=== PATIENT | female | born 2000 | race Hispanic/Latino ===

== ENCOUNTER 2020-06-27 17:36 | Emergency (ER) | payer OTHER ==
[2020-06-27] MEDS ORDERED: ONDANSETRON HCL INJ 2MG/ML 2ML 2 MG/ML VIAL IV STA (17:46)
--- NOTE | 2020-06-27 17:51 | Emergency Department Note ---
History of Present Illnes History of Present Illness Chief Complaint: Abdominal Complaints History of Present Illness This is a 19 year old female Chief Complaint Comment Patient in from home with complaints of lower abdominal pain that started today. Patient states that the pain is 10/10. Patient states that menstrual cycles are irregular and that her LMP was 3 months ago. Patient does report being sexually active but denies . Historian: Patient Arrival Mode: Car Ecommerce Marketing Specialist Required: No Onset (how long ago): day(s) (1) Location: lower abdominal Quality: sharp Radiation: Reports non-radiation Severity: moderate Onset quality: gradual Duration (how long): day(s) (1) Timing of current episode: constant Progression: worsening Chronicity: new Context: Denies recent illness Relieving factors: none Exacerbating factors: none Associated symptoms: Reports denies other symptoms Treatments prior to arrival: none Past Medical/Family History Physician Review I have reviewed the patient's past medical and family history. Any updates have been documented here. Past Medical History Recent Fever: No Clinical Suspicion of Infectio: No New/Unexplained Change in Ment: No Review of Systems Review of Systems Constitutional: Reports no symptoms EENTM: Reports no symptoms Cardiovascular: Reports no symptoms Respiratory: Reports no symptoms Gastrointestinal: Reports no symptoms, Reports as per HPI, Reports abdominal pain (lowe, bilateral), Reports nausea; Denies constipation, Denies diarrhea, Denies vomiting Genitourinary: Reports no symptoms; Denies discharge, Denies dysuria, Denies frequency, Denies hematuria Musculoskeletal: Reports no symptoms Integumentary: Reports no symptoms Neurological: Reports no symptoms Psychological: Reports no symptoms Endocrine: Reports no symptoms Hematological/Lymphatic: Reports no symptoms Physical Exam Related Data Allergies: Coded Allergies: No Known Allergies (Unverified , 06/27/20) Triage Vital Signs Vital Signs Date Time Temp Pulse Resp B/P (MAP) Pulse Ox O2 Delivery O2 Flow Rate FiO2 06/27/20 17:41 99.1 117 18 139/73 100 Vital signs reviewed: Yes Physical Exam CONSTITUTIONAL Constitutional: Present well-developed, Present well-nourished HENT HENT: Present normocephalic, Present atraumatic, Present oropharynx clear/moist, Present nose normal HENT L/R: Present left ext ear normal, Present right ext ear normal EYES Eyes: Reports PERRL, Reports conjunctivae normal NECK Neck: Present ROM normal PULMONARY Pulmonary: Present effort normal, Present breath sounds normal CARDIOVASCULAR Cardiovascular: Present regular rhythm, Present heart sounds normal, Present capillary refill normal, Present normal rate GASTROINTESTINAL Abdominal: Present soft, Present bowel sounds normal, Present tender (Bilateral lower abdomen); Absent nontender GENITOURINARY Genitourinary: Present exam deferred SKIN Skin: Present warm, Present dry MUSCULOSKELETAL Musculoskeletal: Present ROM normal NEUROLOGICAL Neurological: Present alert, Present oriented x 3, Present no gross motor or sensory deficits PSYCHOLOGICAL Psychological: Present mood/affect normal, Present judgement normal Assessment & Plan Medical Decision Making MDM 19 y.o F presents for abdominal pain. Initial differential includes appendicitis versus STD versus urinary tract infection. Workup shows urinary tract infection. She'll be prescribed Keflex will follow up with primary care provider for further concerns. Patient discharged. Assessment & Plan Final Impression: (1) UTI (urinary tract infection) Depart Disposition: HOME, SELF-CARE Last Vital Signs Date Time Temp Pulse Resp B/P (MAP) Pulse Ox O2 Delivery O2 Flow Rate FiO2 06/27/20 17:41 99.1 117 18 139/73 100 Home Meds Active Scripts Cephalexin Monohydrate (KEFLEX) 500 Mg Capsule, 500 MG PO Q6H, #40 TAB 0 Refills Prov:SANDHIR, AMBICA, DO 06/27/20 Dicyclomine Hcl (BENTYL) 10 Mg/1 Ml Ampul, 10 MG PO QID, #30 VIAL Prov:CATARINOR AMBICA, DO 06/27/20 Ondansetron Hcl* (ZOFRAN*) 4 Mg Tablet, 4 MG SL Q6H PRN for NAUSEA, #14 MG 0 Refills Prov:AMADOR TRACY, DO 06/27/20 EDILBERTO GOLD MD Jun 27, 2020 17:51
[2020-06-27] MEDS ORDERED: SODIUM CHLORIDE 0.9% INJ 100 ML BAG IV ONE (17:59)
[2020-06-27] MEDS ORDERED: IOPAMIDOL 370 MG/ML 50ML INFUS..BTL INJ ONE (17:59)
[2020-06-27] MEDS ORDERED: FENTANYL CITRATE/PF 100MCG/2 ML INJ IV PRN (18:00)
--- OUTSIDE RECORDS SUMMARY | 2020-06-27 18:00 | XMS REPORT | Summary of Care ---
Author Author [facility] Outpatient Imaging - [facility] Organization [facility] Outpatient Imaging - [facility] Address Unknown Phone Unavailable Encounter HQ Toño(FIN) [id number] Date(s): 08/21/18 - 08/21/18 [facility] Outpatient Imaging [address], [address] [place], [place] [address] [phone] Encounter Diagnosis Type 2 diabetes mellitus without complications (Final) - 08/27/18 Unspecified abdominal pain (Final) - Hematuria, unspecified (Final) - Fever, unspecified (Final) - Other specified disorders of kidney and ureter (Final) - Cyst of kidney, acquired (Final) - Discharge Disposition: Home or Self Care Attending Physician: Jake Bond MD Referring Physician: Jake Bond MD Vital Signs No data available for this section Problem List Condition Effective Dates Status Health Status Informan t Diabetes Resolved mellitus(Confirmed) Allergies, Adverse Reactions, Alerts Substance Reaction Severity Status Food Shellfish Active Medications No data available for this section Results No data available for this section Immunizations No data available for this section Procedures No data available for this section Social History Social History Type Response Smoking Status Never smoker; Exposure to T obacco Smoke None; Cigarette Smoking Last 365 Days No; Reg Smoking Cessation Counseli ng No entered on: 04/17/16 Assessment and Plan No data available for this section
--- OUTSIDE RECORDS SUMMARY | 2020-06-27 18:00 | XMS REPORT ---
Author Author AKASH Miller Organization Unknown Address Unknown Phone Care Team Providers Care Electronic News Gathering Editor Name Role Phone Gloria Miller PP Reason for Referral No Reason for Referral was given. History of Present Illness No HPI available. Problems * Normal Routine History And Physical Adolescent (12 - 17) (V20.2); ( Active) * No Active Problems (Active) Medication * Augmentin 400-57 MG/5ML SUSR (Active) Allergies and Adverse Reactions * No Known Drug Allergies (Active) Past Medical History * History of Pharyngitis (462); (Resolved) Family History * Family history of Hypertension (V17.49); (Active) * Family history of Type 2 Diabetes Mellitus (Active) Social History * Never A Smoker (Active) * Never Drank Alcohol (Active) Advance Directives * No Advance Directives available. Encounters * AUDIT 01/18/2014
--- OUTSIDE RECORDS SUMMARY | 2020-06-27 18:00 | XMS REPORT | Summary of Care ---
Author Author [facility] Organization [facility] Address Unknown Phone Unavailable Encounter SAMARA Lundberg(RICARDA) [id number] Date(s): 04/17/16 - 04/19/16 [facility] [address] [employer] provided by [employer] [place] [address]- Discharge Disposition: Home Attending Physician: Will Shin MD Admitting Physician: Will Shin MD Vital Signs 1 2 3 Most recent to oldest [Reference Range]: 151.3 cm (04/19/16 11:46 AM) Height 98 DegF (04/19/16 11:00 AM) 98.1 DegF (04/19/16 8:00 AM) 97.6 DegF (04/19/16 4:04 AM) Temperature Oral [96.8-99.7 DegF] 115/76 mmHg (04/19/16 11:00 AM) 111/74 mmHg (04/19/16 8:00 AM) 109/68 mmHg (04/19/16 4:04 AM) Blood Pressure [90-138/45-84 mmHg] 19 BRMIN (04/19/16 11:00 AM) 18 BRMIN (04/19/16 8:00 AM) 20 BRMIN (04/19/16 4:04 AM) Respiratory Rate [14-20 BRMIN] 75 bpm (04/19/16 11:00 AM) 71 bpm (04/19/16 8:00 AM) 76 bpm (04/19/16 4:04 AM) Peripheral Pulse Rate [55-90 bpm] 77.8 kg (04/19/16 11:46 AM) 77.8 kg (04/17/16 2:50 PM) 78.5 kg (04/17/16 10:41 AM) Weight 33.99 m2 (04/19/16 11:46 AM) Body Mass Index Problem List Condition Effective Dates Status Health Status Informan t Diabetes Resolved mellitus(Confirmed) Allergies, Adverse Reactions, Alerts Substance Reaction Severity Status Food Shellfish Active Medications Dextrose 50% Syringe 25 gm, 50 mL, Route: IVP, Drug Form: INJ, Dosing Weight 78.5, kg, PRN, PRN Blood Glucose Results, Start date: 04/17/16 14:36:00 CDT, Duration: 30 day, Stop date: 05/17/16 14:35:00 CDT Start Date: 04/17/16 Stop Date: 04/19/16 Status: Discontinued insulin aspart 11 unit, 0.11 mL, Route: SUB-Q, Drug form: SOLN, TID-Before Meals, Dosing Weight 78.5, kg, Start date: 04/17/16 16:30:00 CDT, Duration: 30 day, Stop date: 05/17 11:30:00 CDT Notes: Roll in palms of hands gently; Do not shake vigorously. (Same as: Lorna Joseph)"single patient use only"WASTE: F/P - Black; E - Municipal Trash Bin Stable f or 28 days at room temperature.Expires in days from Date Start Date: 04/17/16 Stop Date: 04/19/16 Status: Discontinued insulin aspart 11 unit, 0.11 mL, Route: SUB-Q, Drug form: SOLN, Before Lunch, Dosing Weight 77. 8, kg, Start date: 04/19/16 11:30:00 CDT, Duration: 30 day, Stop date: 05/18/16 11:30:00 CDT Notes: Roll in palms of hands gently; Do not shake vigorously. (Same as: Lorna Joseph)"single patient use only"WASTE: F/P - Black; E - Municipal Trash Bin Stable f or 28 days at room temperature.Expires in days from Date Start Date: 04/19/16 Stop Date: 04/19/16 Status: Discontinued insulin aspart 12 unit, 0.12 mL, Route: SUB-Q, Drug form: SOLN, Before Breakfast, Dosing Weight 77.8, kg, Start date: 04/20/16 7:30:00 CDT, Duration: 30 day, Stop date: 7:30:00 CDT Notes: Roll in palms of hands gently; Do not shake vigorously. (Same as: NovoCARLOS Joseph)"single patient use only"WASTE: F/P - Black; E - Municipal Trash Bin Stable f or 28 days at room temperature.Expires in days from Date Start Date: 04/20/16 Stop Date: 04/19/16 Status: Canceled insulin aspart 12 unit, 0.12 mL, Route: SUB-Q, Drug form: SOLN, Before Dinner, Dosing Weight 77 .8, kg, Start date: 04/19/16 16:30:00 CDT, Duration: 30 day, Stop date: 05/18/16 16:30:00 CDT Notes: Roll in palms of hands gently; Do not shake vigorously. (Same as: Lorna Joseph)"single patient use only"WASTE: F/P - Black; E - Municipal Trash Bin Stable f or 28 days at room temperature.Expires in days from Date Start Date: 04/19/16 Stop Date: 04/19/16 Status: Discontinued insulin aspart Route: SUB-Q, Drug form: SOLN, TID-Meals, Dosing Weight 78.5, kg, PRN Blood Gluc ose Results, Start date: 04/17/16 14:36:00 CDT, Duration: 30 day, Stop date: 14:35:00 CDT Notes: Roll in palms of hands gently; Do not shake vigorously. (Same as: NovoCARLOS Joseph)"single patient use only"WASTE: F/P - Black; E - Municipal Trash Bin Stable f or 28 days at room temperature.Expires in days from Date Start Date: 04/17/16 Stop Date: 04/19/16 Status: Discontinued insulin aspart 1-8unit, SUB-Q, TID-Meals, PRN Blood Glucose Results, 0 Refill(s) Start Date: 04/18/16 Status: Ordered insulin aspart 11 unit, SUB-Q, TID-Before Meals, 0 Refill(s) Start Date: 04/18/16 Status: Ordered insulin glargine 34 unit, 0.34 mL, Route: SUB-Q, Drug form: INJ, Bedtime, Dosing Weight 78.5, kg, Start date: 04/17/16 21:00:00 CDT, Duration: 30 day, Stop date: 05/16/16 21:00: 00 CDT Notes: Same as Lantus Solostar PENDo not hold insulin without contacting prescri poornima"single patient use only"WASTE: F/P - Black; E - Municipal Trash Bin Stable for 28 days at room temperature.Expires in days from Date Start Date: 04/17/16 Stop Date: 04/17/16 Status: Canceled insulin glargine 34 unit, 0.34 mL, Route: SUB-Q, Drug form: INJ, ONCE, Dosing Weight 77.8, kg, St art date: 04/17/16 16:46:00 CDT, Stop date: 04/17/16 16:46:00 CDT Notes: Same as Lantus Solostar PENDo not hold insulin without contacting prescri poornima"single patient use only"WASTE: F/P - Black; E - Municipal Trash Bin Stable for 28 days at room temperature.Expires in days from Date Start Date: 04/17/16 Stop Date: 04/17/16 Status: Completed insulin glargine 34 unit, 0.34 mL, Route: SUB-Q, Drug form: INJ, Bedtime, Dosing Weight 78.5, kg, Start date: 04/18/16 21:00:00 CDT, Duration: 30 day, Stop date: 05/17/16 21:00: 00 CDT Notes: Same as Lantus Solostar PENDo not hold insulin without contacting prescri poornima"single patient use only"WASTE: F/P - Black; E - Municipal Trash Bin Stable for 28 days at room temperature.Expires in days from Date Start Date: 04/18/16 Stop Date: 04/19/16 Status: Discontinued insulin glargine 100 units/mL subcutaneous solution 34 unit, SUB-Q, Bedtime, 0 Refill(s) Start Date: 04/18/16 Status: Ordered normal saline 0.9% IV 1,000 mL 1,000 mL, Rate: 100 ml/hr, Infuse over: 10 hr, Route: IV, Dosing Weight 78.5 kg, Total Volume: 1,000, Priority: STAT, Start date: 04/17/16 10:59:00 CDT, Duratio n: 1 doses or times, Stop date: 04/17/16 20:58:00 CDT Start Date: 04/17/16 Stop Date: 04/17/16 Status: Completed pentafluoropropane-tetrafluoroethane topical 1 spray, Route: TOP, PRN, Drug form: SPRY, PRN Procedure, Start date: 04/17/16 1 4:40:00 CDT, Duration: 30 day, Stop date: 05/17/16 14:39:00 CDT Notes: (Same as: Pain Ease Medium Stream)WASTE: Aerosol - Return to Pharmacy Start Date: 04/17/16 Stop Date: 04/19/16 Status: Discontinued sucrose 0.2 mL, Route: PO, Drug Form: LIQ, Dosing Weight 78.5, kg, PRN, PRN Procedure, S tart date: 04/17/16 14:40:00 CDT, Duration: 3 doses or times, Stop date: Limited # of times Start Date: 04/17/16 Stop Date: 04/17/16 Status: Deleted Results ELECTROLYTES Most recent to 1 oldest [Reference Range]: Sodium Lvl [135-145 140 mEq/L mEq/L] (04/17/16 11:29 AM) Potassium Lvl 4.5 mEq/L [3.5-5.1 mEq/L] (04/17/16 11:29 AM) Chloride Lvl [95-109 101 mEq/L mEq/L] (04/17/16 11:29 AM) CO2 [24-32 mEq/L] 28 mEq/L (04/17/16 11:29 AM) AGAP [10.0-20.0 15.5 mEq/L mEq/L] (04/17/16 11:29 AM) CHEM PANEL Most recent to 1 oldest [Reference Range]: Creatinine Lvl 0.72 mg/dL [0.50-1.40 mg/dL] (04/17/16 11:29 AM) eGFR See Comment 1 *NA* (04/17/16 11:29 AM) BUN [7-22 mg/dL] 11 mg/dL (04/17/16 11:29 AM) Glucose Lvl [70-99 378 mg/dL mg/dL] *HI* (04/17/16 11:29 AM) Calcium Lvl 9.5 mg/dL [8.5-10.5 mg/dL] (04/17/16 11:29 AM) Amylase Lvl [25-115 48 unit/L unit/L] (04/17/16 11:29 AM) Lipase Lvl [73-393 127 unit/L unit/L] (04/17/16 11:29 AM) C-Peptide [0.48-5.05 2.84 ng/mL ng/mL] (04/17/16 4:47 PM) 1Result Comment: No height is recorded for this patient; estimated GFR cannot be calculated. SPECIAL CHEMISTRY Most recent to 1 oldest [Reference Range]: Hgb A1C [<=5.6 %] 11.4 % *HI* (04/17/16 11:29 AM) TOXICOLOGY Most recent to 1 oldest [Reference Range]: Insulin Ab [<0.4 <0.4 unit/mL 1 unit/mL] *NA* (04/17/16 11:29 AM) 1Result Comment: Test Performed at: [facility] [id number] [place] [id number] Alesha Kennedy MD, PhD ENDOCRINOLOGY Most recent to 1 oldest [Reference Range]: Insulin Lvl 18.4 uIU/mL *NA* (04/17/16 4:47 PM) URINE AND STOOL Most recent to 1 oldest [Reference Range]: UA Turbidity [Clear] Slight Cloudy (04/17/16 11:59 AM) UA Color [Yellow] Yellow *NA* (04/17/16 11:59 AM) UA pH [5.0-8.0] 5.5 (04/17/16 11:59 AM) UA Spec Grav 1.020 [<=1.030] (04/17/16 11:59 AM) UA Glucose [Negative >=1000 mg/dL mg/dL] *ABN* (04/17/16 11:59 AM) UA Blood [Negative] Trace *ABN* (04/17/16 11:59 AM) UA Ketones Negative [Negative] *NA* (04/17/16 11:59 AM) UA Protein Negative [Negative] (04/17/16 11:59 AM) UA Urobilinogen 0.2 EU/dL [0.1-1.0 EU/dL] (04/17/16 11:59 AM) UA Bili [Negative] Negative *NA* (04/17/16 11:59 AM) UA Leuk Est Small [Negative] *ABN* (04/17/16 11:59 AM) UA Nitrite Negative [Negative] (04/17/16 11:59 AM) UA WBC [None Seen 11-20 /HPF /HPF] *ABN* (04/17/16 11:59 AM) UA RBC [0-2 /HPF] 3-5 /HPF *ABN* (04/17/16 11:59 AM) UA Bacteria [None Few /HPF Seen /HPF] (04/17/16 11:59 AM) UA Sq Epi [Few /LPF] Moderate /LPF *ABN* (04/17/16 11:59 AM) Micro? Performed (04/17/16 11:59 AM) IMMUNOLOGY Most recent to 1 oldest [Reference Range]: Islet Cell Ab NEGATIVE 1 [NEGATIVE] *NA* (04/17/16 11:29 AM) 1Result Comment: This test was developed and its analytical performance characteristics have been determined by [facility]. It has not been cleared or approved by the U.S. Food and Drug Administration. The FDA has determined that such clearance or approval is not necessary. This assay has been validated pursuant to the CLIA regulations and is used for clinical purposes. Test Performed at: [facility] [address] [place] [id number] Alesha Kennedy MD, PhD Immunizations No data available for this section Procedures No data available for this section Social History Social History Type Response Smoking Status Never smoker; Exposure to T obacco Smoke None; Cigarette Smoking Last 365 Days No; Reg Smoking Cessation Counseli ng No Assessment and Plan Extracted from: Title: Team D Discharge Summary Author: Sarah Newby MD Date: 04/19/16 TEAM D DISCHARGE SUMMARY PATIENT S NAME: Akash Winston ADMISSION DATE: 04/17/2016 DISCHARGE DATE: 04/19/2016 SERVICE: D ATTENDING PHYSICIAN: Dr. Gretel Cartagena CONSULTS: Endocrinology PROCEDURES: None REASONS FOR ADMISSION: Hyperglycemia HISTORY OF PRESENT ILLNESS: Akash is a 15yo F presenting from clinic with hyperglycemia >300 and HbA1C of 11.7 and new onset diabetes. Mom reports 2 years ago first notice patient had acanthosis nigracans on her neck and went to PCP for evaluation. A1C at that time was 8.1. Was then referred to [facility] endocrine but mom was unable to get appointment for several months. 1 wk ago patient had epi sode of R. hand swelling on dorsum after "bug bite". Went to PCP and was started on PO bactrim x 10d for possible "staph infection". At this visit mom requested repeat A1C check as had never been reevaluated. At this time was 12.4. Patient then referred to [place] [facility] clinic and seen by Dr. Pereira. In clinic today, repeat A1C 11.7 and glucose in the 360s. Patient was then sent to [facility] ED. Prior to admission patient reports few months of polydipsia and polyuria. Has had 2-7lb weight loss since 04/04/16 clinic visit. PCP had been trying to regulate diet recently. Endorsed occasional headaches at school, in the heat, and when hasn't eaten. Recent low grade temp on 04/14, 100.7 Tm. Patient has completed 7/10d of PO bactrim, was discontinued in clinic today. PHYSICAL EXAM: GENERAL - awake, alert, well-developed, no acute distress, obese HEENT - NCAT, normal facies. PERRL. EOMI. hearing grossly intact. nares patent, no discharge. MMM, no oral lesions. neck supple, full ROM LUNGS - clear to auscultation bilaterally, no crackles or wheezes, symmetrical chest expansion, no increased work of breathing. CV - RRR, S1 and S2 present, no murmur, 2+ pulses bilaterally, cap refill < 2 sec. ABDOMEN - soft, non-tender, non-distended, normoactive bowel sounds EXTREMITIES - full ROM, no joint swelling or erythema, no edema. NEURO - grossly intact SKIN - no bruises, no lesions, no rashes. +mild swelling on R. dorsum near bug bite LABS: 04/17/2016 11:22 Glucose POC 344 * H (Ref. Range 70 - 99) 04/17/2016 11:29 Sodium Lvl 140 (Ref. Range 135 - 145) Potassium Lvl 4.5 (Ref. Range 3.5 - 5.1) Chloride Lvl 101 (Ref. Range 95 - 109) CO2 28 (Ref. Range 24 - 32) AGAP 15.5 (Ref. Range 10.0 - 20.0) Creatinine Lvl 0.72 (Ref. Range 0.50 - 1.40) eGFR See Comment * BUN 11 (Ref. Range 7 - 22) Glucose Lvl 378 * H (Ref. Range 70 - 99) Calcium Lvl 9.5 (Ref. Range 8.5 - 10.5) Amylase Lvl 48 (Ref. Range 25 - 115) Lipase Lvl 127 (Ref. Range 73 - 393) Hgb A1C 11.4 H (Ref. Range - <=5.6) Temp Allen 37.0 pH Allen 7.38 (Ref. Range 7.28 - 7.42) pCO2 Allen 46 (Ref. Range 38 - 52) pO2 Allen 33 (Ref. Range 20 - 49) HCO3 Allen 27 H (Ref. Range 22 - 26) BE Allen 2 (Ref. Range -2 - 2) O2 Sat Allen 62.1 (Ref. Range 40.0 - 70.0) 04/17/2016 11:59 UA Turbidity Slight Cloudy (Ref. Range Clear - ) UA Color Yellow (Ref. Range Yellow - ) UA pH 5.5 (Ref. Range 5.0 - 8.0) UA Spec Grav 1.020 (Ref. Range - <=1.030) UA Glucose >=1000 A (Ref. Range Negative - ) UA Blood Trace A (Ref. Range Negative - ) UA Ketones Negative (Ref. Range Negative - ) UA Protein Negative (Ref. Range Negative - ) UA Urobilinogen 0.2 (Ref. Range 0.1 - 1.0) UA Bili Negative (Ref. Range Negative - ) UA Leuk Est Small A (Ref. Range Negative - ) UA Nitrite Negative (Ref. Range Negative - ) UA WBC 11-20 A (Ref. Range None Seen - ) UA RBC 3-5 A (Ref. Range 0-2 - ) UA Bacteria Few (Ref. Range None Seen - ) UA Sq Epi Moderate A (Ref. Range Few - ) Micro? Performed 04/17/2016 16:47 C-Peptide 2.84 (Ref. Range 0.48 - 5.05) Insulin Lvl 18.4 * 04/17/2016 16:58 Glucose POC 238 * H (Ref. Range 70 - 99) 04/17/2016 21:21 Glucose POC 250 * H (Ref. Range 70 - 99) 04/18/2016 02:06 Glucose POC 178 * H (Ref. Range 70 - 99) 04/18/2016 07:45 Glucose POC 216 * H (Ref. Range 70 - 99) 04/18/2016 11:53 Glucose POC 255 * H (Ref. Range 70 - 99) 04/18/2016 18:04 Glucose POC 168 * H (Ref. Range 70 - 99) 04/18/2016 21:21 Glucose POC 275 * H (Ref. Range 70 - 99) Gluc POC Comment 1 Notified RN/ 04/19/2016 02:04 Glucose POC 211 * H (Ref. Range 70 - 99) Gluc POC Comment 1 Notified RN/ 04/19/2016 07:48 Glucose POC 168 * H (Ref. Range 70 - 99) 04/19/2016 12:01 Glucose POC 153 * H (Ref. Range 70 - 99) Gluc POC Comment 1 Notified RN/MD IMAGING: None MICROBIOLOGY: None ER COURSE: On arrival to the ED, patient was afebrile and vital signs were within normal limits. Electrolytes and CBC within normal limits but with POC glucose 378. Urine ketones negative. VBG wnl 7.38/46/33/27. Amylase and lipase wnl. Patient was transferred to the Pediatrics inpatient service for higher level of care. HOSPITAL COURSE: CV: Patient was hemodynamically stable throughout her hospital course. RESP: Akash did not require any oxygen supplementation during her hospital course. FEN/GI: She was started on a diabetic diet of 90 g carbs with each meal + 15 g snack x2 with premeal insulin and sliding scale insulin. BMP should electrolytes within normal limits. She did not require any IV fluids. ENDO: Akash was diagnosed with new onset diabetes mellitus (type 1 vs. type 2 to be determined based on lab studies). She was admitted with glucose level > 300 and HgbA1c 11.7. Endocrinology was consulted and recommended checking VBG, BMP, Hgb A1C, amylase, lipase, UA, anti-AVA, anti-islet cell and anti-insulin antibodies. She was also started on an insulin regimen of Lantus 34 U with bedtime, Novolog 11 U with each meal, and sliding scale: 1 Unit for every 30 mg/dL above 150 mg/dL. This was later increased to 12 U Novolog before breakfast, 11 U before lunch, 12 U before dinner. Diabetic education was received and sugars remained stable. She was discharged home with follow-up with endocrinology. ID: Patient was afebrile and did not exhibit any signs or symptoms of infection. NEURO: Akash was alert and oriented her entire admission. She did not demonstrate any signs of altered mental status. DISCHARGE DIAGNOSIS: Diabetes Mellitus DISCHARGE CONDITION: Good DISCHARGE INSTRUCTION: Please follow insulin regimen/diabetic diet as outlined in diabetic correspondence handout FOLLOW-UP APPOINTMENTS: 05/15/[address] at [address] Pereira in End ocrinology Extracted from: Title: Medical Student Progress Author: Deena Castellanos ate: 04/19/16 Note Progress Note - Daily [facility] Completed: , APR 19, 2016, 14:18 by Deena Castellanos RM: 1025 - 01, SHAN [id number] (: 2000) F Attending: Will Shin MDPhone: Service: Pediatrics Service Reason for Admission: BLOOD GLUCOSE LEVEL HIGH Working DRG: Other kidney & urinary tract diagnoses w/o CC/CORRECTION Code status: Full Code [Ordered]Current diet: Diabetic diet Isolation: None Documented Allergies: Food Shellfish SUBJECTIVE Pt is doing well today and has no complaints. She says she slept well last night and has not been needing to urinate or drink liquids as much as she had to previously. certified diabetes educator visited her and mother yesterday. Pt says she is now able to administer insulin on her own and mother says she is able to as well if pt has trouble doing so. OBJECTIVE PE General: awake, alert, NAD. HEENT: atraumatic head. EOMI, PERRLA. Nares normal with no congestion or rhinorrhea noted. Mucous membranes moist. No LAD. CV: regular rate and rhythm. No murmurs noted. Resp: CTAB.Stable on room air. GI: no abdominal tenerdness noted. Normal bowel sounds. MSK: normal strength in all extremities. Skin: no cyanosis, jaundice, rashes, or lesions. Stretch nunez noted on L abdomen. Heme: no petechiae or ecchymoses noted. Neuro: normal tone in all extremities. 24hr Labs 04/19 1201 Glucose [id number] H 04/19 0748 Glucose PNR064 H 04/19 0204 Glucose QUM953 H 04/18 2121 Glucose NBK178 H 04/18 1804 Glucose GMM318 H Line still necessary (Yes/No): No VitalsTmp(F)[id number] 04/19 11:[id number]/7619------ 04/19 08:0098.747039/7418------ 04/19 04:0497.889914/6820------ 04/19 00:0298.56642/6020------ 04/18 20:0098.199999/7120------ 24 Hr Tmax: 98.3F (36.83c) at 04/18 20:0 0Vital Signs are the last 5 in the past 48 hours. DateWt(kg)Wt(lb)Ht(cm)Ht(in)Method 04/19 77.80 171.83951.30 59.57Measured 04/17 (initial) 78.50 172.70Measured 51.30 59.57Measured I&ORecordInOutBal 04/224hr Tot 240 400 -160 04/124hr Tot 720 500 220 Medications (7) Active Scheduled Meds (4): 04/20/16 insulin aspart 12 unit SUB-Q Be fore Breakfast 04/19/16 insulin aspart 11 unit SUB-Q Be fore Lunch 04/19/16 insulin aspart 12 unit SUB-Q Be fore Dinner 04/18/16 insulin glargine 34 unit SUB-Q Bedtime Unscheduled Meds: None PRN Meds (3): 04/17/16 Dextrose 50% in Water IV (Dextr ose 50% Syringe) 25 gm IVP PRN 04/17/16 insulin aspart SUB-Q TID-Meals 04/17/16 pentafluoropropane-tetrafluoroe karlo topical 1 spray TOP PRN One Time Meds: None Continuous Infusions: None ASSESSMENT & PLAN Akash Winston is a 15 yo female with PMH of hyperglycemia who presented 04/17 to [place] [facility] clinic with glucose >300 and HbA1c 11.7, admitted for severe hyperglycemia. 1) CV -hx of heart murmur (resolved) -no acute problems, hemodynamically stab le. 2) Resp -stable on room air. -no acute problems. 3) GI -diabetic diet 4) -pt denies dysuria, polyuria, and hematu quinten. -UOP stable. -no acute problems. 5) Endo -severe hyperglycemia, new-onset DMII: d iabetic diet. Aspart 12 units SQ before breakfast, 11 units SQ before lunch, 12 units SQ before dinner. Glargine 34 units SQ bedtime.SSI SQ tid before meals. -electrolytes within normal limits -glucose checks before meals and q2AM. -anti-AVA, anti-islet cell ab pending. -polydipsia: resolved. -polyuria: resolved. -diabetic education administered. Pt and mother both comfortable with management and insulin tx. 7) MSK -normal strength in all extremities. -no acute problems. 8) Neuro -normal tone in all extremities. -pt denies numbness and tingling -no acute problems. Ready for Discharge (Yes/No)? Yes, pending endo recs. TEACHING ATTESTATION Extracted from: Title: Pedi Endocrinology F/U Note Author: Alfredo Cooper DO Date: 04/19/16 Pedi Endocrinology Consult Note NAME: Akash Winston PRIMARY SERVICE: Pedi Team D Primary Attending: Dr. Cartagena Consult Attending: Dr. Oropeza Reason for consultation: Uncontrolled DM, hyperglycemia HPI: Akash is a 15 year old with no signficant PMH that was sent over today from Endocrinology clinic due to poorly controlled DM. Per family, PCP first noticed some acanthosis about 2 years ago. At that time an Hgb A1C was checked and was 8.9%. She was referred to Endocrinology at [facility] at that time but they were unable to make an appointment for her to be followed up. Two weeks prior to admission she was seen by PCP for right hand swelling concerning for cellulitis +/- abscess and placed on antibiotics. At this time a repeat Hgb A1C was sent and came back at 12.4%. She was then referred to [facility] where she presented for inital evaluation today. In the clinic she was found to have a blood sugar to 352 mg/dL and an Hgb A1C of 11.7%. She has been complaining of both polyuria and polydipsia for months. In addition to this she has been complaining of some headaches recently. They were concerned in the clinic that she needed to be evaluated for possible DKA and she was sent to the ED. She sta [place] that she had onset of menses at age 14 and has irregular periods, mother thinks she had onset of menses at age 15 but is not sure. She is completing a course of antibiotics currently for this skin infection of her R hand. Interim Hx: No acute events overnight. Blood glucoses ranged between 168-275. She received 8 Units of sliding scale Novolog yesterday with meals and 1 unit with breakfast today. Family received diabetic education yesterday and feel comfortable with everything. Family to use Humalog at home. Scheduled Meds (2): 04/17/16 16:30 insulin aspart 11 unit MATOS B-Q TID-Before Meals 04/18/16 21:00 insulin glargine 34 unit SUB-Q Bedtime Unscheduled Meds: None PRN Meds (3): 04/17/16 14:36 Dextrose 50% in Water IV (Dextrose 50% Syringe) 25 gm IVP PRN 04/17/16 14:36 insulin aspart SUB-Q TID- Meals 04/17/16 14:40 pentafluoropropane-tetraf luoroethane topical 1 spray TOP PRN One Time Meds: None Continuous Infusions: None Review of Systems: GEN: +wt loss (5 lb), no fevers HEENT: no congestion, no sore throat, no vision problems, no dry eyes CV: no palpitations, no chest pain RESP: no SOB, no cough GI: no vomiting, no nausea, no diarrhea, no constipation : no hematuria or dysuria MSK: no joint pain, no muscle pain NEURO: +Headache, no seizures, no tremor HEME: no easy bruising or bleedign ENDO: +polyuria, +polydipsia, no heat or cold intolerance Physical Examination: VitalsTmp(F)Tmp(C)[id number] 04/19 08:[id number]---- ----- 04/19 04:[id number]/[id number]---- ----- 04/19 00:[id number]/[id number]----- ---- 04/18 20:[id number]/[id number]---- ----- 04/18 12:2298.036.80anhy751/[id number]---- ----- 24 Hr Tmax: 98.3F (36.83c) at 04/18 20:0 0Vital Signs are the last 5 in the past 48 hours. 24 Hr Tmin: 97.6F (36.44c) at 04/19 04: 04Weights are the last 5 in 60 days, plus initial. DateWt(kg)Wt(lb)Ht(cm)Ht(in)MethodBMIBSA 04/17 (initial) 78.50 172.70Measured GEN: No acute distress, laying in bed comfortably HEENT: NCAT, EOMI, oropharynx clear, nares patent NECK: +acanthosis nigricans, no LAD, thyroid not palpable RESP: CTAB, no wheezing, no increased WOB CV: Nl S1/S2, no murmurs ABD: soft, NTND, +BS : Masoud Stage 4 both breasts and pubic hair MSK: moving all extremities NEURO: no deficts noted, AAOx3 Skin: +multiple abdominal striae, otherwise no rashes or lesions noted Labs: 04/19 0204 Glucose ZLE482 H 04/18 2121 Glucose UAI692 H 04/18 1804 Glucose YBM371 H 04/18 1153 Glucose VRC538 H 04/18 0745 Glucose DBW567 H 04/18 0206 Glucose IHX976 H 04/17 1647 C-Peptide2.84 Insulin Lvl18.4 Assessment: Akash is a 15 year old with DM most likely Type 2 that was sent from clinic for further management and education of her DM. Her Hgb A1C was 11.7% in Endocrinology clinic indicating an average blood sugar in the upper 280's. She was Dx by PCP in 2013 but has never received diabetes education or management before. Currenlty at a dose of 0.85units/kg/day. Will continue to make adjustments as needed; we anticipate that she might need much more insulin requirements throughout this admission as this most likely is due to severe insulin resistance. Recommendations: 1. Insulin Regimen: - Lantus 34 U with bedtime - Novolo U breakfast, 11 U Lunch, 1 2U Dinner - Sliding scale: 1 Unit for every 30 mg/ dL above 150 mg/dL - Diet: 90 g carbs with each meal + 15 g snack x2 2. Please check blood glucose qAC, qHS a nd q2AM, please page us for any blood sugar <70 or >350. 3. Diabetic education completed 4. Nutrition consult done on 04/18. Sliding scale: Blood glucose 151-180 = 1 Unit Blood glucose 181-210 = 2 Unit Blood glucose 211-240 = 3 Unit Blood glucose 241-270 = 4 Unit Blood glucose 271-300 = 5 Unit Blood glucose 301-330 = 6 Unit Blood glucose 331-360 = 7 Unit Blood glucose 361-390 = 8 Unit Blood glucose 391-420 = 9 Unit Blood glucose 421-450 = 10 Unit The patient was seen and discussed with the attending, Dr. Oropeza. Alfredo Cooper, DO Pediatrics, PGY-3 Pediatric Endocrine Attending consult note I have seen and evaluated the patient with Dr. Cooper and agree with his note/assessment/plan dated 04/19/16. Garcia Points: Patient stable overnight and insulin adjusted based on FSBG yesterday. Mom and patient are comfortable with diabetes management and mom has already given shots and checked FSBG. Humalog insulin, however, appears to be the preferred insulin and our Account General Manager was going to come today to give samples and make sure prescription ordered for the preferred insulin. Otherwise family is comfortable and is wanting to go home. Labs as above A/P 1. Diabetes mellitus (most likely Type 2) - Patient and mom comfortable and wants to go home. Ok to D/C home today with the insulin adjustments as noted in our Correspondence note dated same day for the Diabetes instructions. Once our family life educator irons out which bolus insulin is preferred, i.e. humalog and sample given, ok to go home. Continue same diet and sliding scale and have asked family to call us early next week to discuss [facility] records and adjust insulins as needed. Ok to page us on our emergency pager if problems with blood sugar too high or low or ketones positive. Extracted from: Title: Team D History and Physical Author: Elida Souza MD Date: 04/17/16 Team D History & Physical: PATIENT NAME: Akash Winston DATE OF : 2000 DATE OF ADMISSION: 04/17/2016 ATTENDING: Dr. Cartagena PRIMARY TEAM: Team D CC: hyperglycemia HPI: History was provided by mom and patient Akash is a 15yo F presenting from clinic with hyperglycemia >300 and HbA1C of 11.7 and new onset diabetes. Mom reports 2 years ago first notice patient had acanthosis nigracans on her neck and went to PCP for evaluation. A1C at that time was 8.1. Was then referred to [facility] endocrine but mom was unable to get appointment for several months. 1 wk ago patient had episode of R. hand swelling on dorsum after "bug bite". Went to PCP and was started on PO bactrim x 10d for possible "staph infection". At this visit mom requested repeat A1C check as had never been reevaluated. At this time was 12.4. Patient then referred to [place] [facility] and seen by Dr. Pereira. In clinic today, repeat A1C 11.7 and glucose in the 360s. Patient was then sent to [facility] ED. Prior to admission patient reports few months of polydipsia and polyuria. Has had 2-7lb weight loss since 04/04/16 clinic visit. PCP had been trying to regulate diet recently. Endorsed occasional headaches at school, in the heat, and when hasn't eaten. Recent low grade temp on 04/14, 100.7 Tm. Patient has completed 7/10d of PO bactrim, was discontinued in clinic today. ER COURSE: On arrival to the ED, patient was afebrile and vital signs were within normal limits. Electrolytes and CBC within normal limits but with POC glucose 378. Urine ketones negative. VBG wnl 7.38/46/33/27. Amylase and lipase wnl. Patient was transferred to the Pediatrics inpatient service for higher level of care. Past Medical History: h/o heart murmur in childhood, followed with cards, now resolved Past Surgical History: none. History: Patient was born at term via . Good care with vitamins. Mother reports pre-eclampsia prior to delivery, no other complications during and denies any drug use. Murmur noted after , was referred to cardiology, no surgical intervention needed. Developmental History: No history of developmental delay. Gross motor, fine motor, social, and language skills appropriate for age. Nutrition: regular diet at maxim. Current Weight: 77.8kg. Immunizations: up to date, per parent. Home Medications: none. Allergies: NKDA. Shellfish Family History: non-contributory. Social History: Patient lives at home with parents, 2 sisters, brother [facility], and 1yo txafua. No household pets. No smoking in the house. No recent travel. +sick contacts brother in law with URI symptoms. PCP: Dr. Leighann Miller with [facility] phone: [phone] REVIEW OF SYSTEMS: GENERAL - no behavioral changes,+weight loss, no appetite changes, no fever. HEENT- no head trauma, no ear discharge, no eye discharge, no nasal congestion, no runny nose, no sore throat. RESP - no cough, no trouble breathing, no wheezing, no respiratory distress. CV - +history of murmurs now resolved, no cyanotic spells, no palpitations, no chest pain. GI - no abdominal pain, no constipation, no diarrhea, no vomiting. - no hematuria, no dysuria, no edema of hands and feet, no decreased urine output. MSK - no joint swelling, erythema, tenderness or edema. NEURO - no seizures, no syncope, no headache, no altered mental status, no history of developmental delay. SKIN - no bruises, no lesions, no itching, no rashes. +mild swelling on R. dorsum near bug bite PSYCH - no mood changes, no insomnia, no anxiety, no suicidal ideation. ENDO - no heat or cold intolerance, +polydipsia, +polyuria, no polyphagia. Vitals and Temp: VitalsTmp(F)[id number] 04/17 15:2798.002233/6421------ 04/17 13:0098.455767/7220------ 04/17 12:5398.684428/865871--- 04/17 10:4198.189864/762133--- 24 Hr Tmax: 98.9F (37.17c) at 04/17 10:4 1Vital Signs are the last 5 in the past 48 hours. DateWt(kg)Wt(lb)Ht(cm)Ht(in)Method 04/17 (initial) 78.50 172.70Measured I&ORecordInOutBal 3124hr Tot 300 0 300 3024hr Tot 0 0 0 Lines, Tubes, and Drains: 04/17/2016 11:43 Peripheral Lines: Antec ubital Right 22 gauge Over the needle catheter Medications (6) Active Scheduled Meds (2): 04/17/16 insulin aspart 11 unit SUB-Q TI D-Before Meals 04/18/16 insulin glargine 34 unit SUB-Q Bedtime Unscheduled Meds: None PRN Meds (3): 04/17/16 Dextrose 50% in Water IV (Dextr ose 50% Syringe) 25 gm IVP PRN 04/17/16 insulin aspart SUB-Q TID-Meals 04/17/16 pentafluoropropane-tetrafluoroe karlo topical 1 spray TOP PRN One Time Meds (1): 04/17/16 (Ordered) insulin glargine 34 unit SUB-Q ONCE Continuous Infusions: None PHYSICAL EXAM: GENERAL - awake, alert, well-developed, no acute distress. HEENT - NCAT, normal facies. PERRLA. EOMI. hearing grossly intact. nares patent, no discharge. MMM, no oral lesions. neck supple, full ROM LUNGS - clear to auscultation bilaterally, no crackles or wheezes, symmetrical chest expansion, no increased work of breathing. CV - RRR, S1 and S2 present, no murmur, 2+ pulses bilaterally, cap refill < 2 sec. ABDOMEN - soft, non-tender, non-distended, normoactive bowel sounds, no masses, no hernias. EXTREMITIES - full ROM, no joint swelling or erythema, no edema. NEURO - no motor deficits, no sensory deficits, normal tone, normal strength, normal reflexes. SKIN - no bruises, no lesions, no rashes. +mild swelling on R. dorsum near bug bite LABS: 36hr Labs 04/17 1658 Glucose MZC641 H 04/17 1159 UA ColorYellow UA TurbiditySlight Cloudy UA Spec Grav1.020 UA pH5.5 UA ProteinNegative UA Glucose>=1000 UA KetonesNegative UA BiliNegative UA BloodTrace UA Urobilinogen0.2 UA NitriteNegative UA Leuk EstSmall UA RBC3-5 UA RBF85-68 UA BacteriaFew UA Sq EpiModerate Micro?Performed 04/17 1129 Temp Ven37.0 pH Ven7.38 pCO2 Ven46 pO2 Ven33 HCO3 Ven27 H BE Ven2 O2 Sat Ven62.1 Glucose Uoh603 H BUN11 Creatinine Lvl0.72 Sodium Jwo183 Potassium Lvl4.5 Chloride Bbr186 CO228 AGAP15.5 Calcium Lvl9.5 eGFRSee Comment Amylase Lvl48 Lipase Smi598 Hgb A1C11.4 H 04/17 1122 Glucose FDV910 H MICROBIOLOGY: none. IMAGING/DIAGNOSTICS: none. ASSESSMENT: Akash is a 15yo F presenting from endocrine clinic with hyperglycemia >300 and HbA1C of 11.7 and new onset diabetes. Patient has been started on subQ insulin per endocrine recs. Endocrine consulted and following. PLAN: 1. CV - Hemodynamically stable. Continue to mo nitor. 2. RESP - Stable on room air. Continue to monito r respiratory status. 3. FEN/GI - Diet:diabetetic diet - 90 g carbs with each meal + 15 g snack x2 - sliding scale with meals only - IVF's: not indicated. - Electrolytes within normal limits. - qAC and q2am glucose checks 4. Endo: new onset DM - admitted with hyperglycemia >300 and e levated HbA1c 11.7 - Endocrine following, appreciate recs: 1. Please check: VBG, BMP, Hgb A1C, amyl ase, lipase, UA, anti-AVA, anti-islet cell and anti-insulin antibodies 2. Insulin Regimen: - Lantus 34 U with bedtime - Novolog 11 U with each meal - Sliding scale: 1 Unit for every 30 mg/ dL above 150 mg/dL - Diet: 90 g carbs with each meal + 15 g snack x2 3. Please check blood glucose qAC and q2 AM, please page us for any blood sugar <70 or >350. 4. Diabetic education to be set up 5. Please consult nutrition for help wit h carb counting Sliding scale: Blood glucose 151-180 = 1 Unit Blood glucose 181-210 = 2 Unit Blood glucose 211-240 = 3 Unit Blood glucose 241-270 = 4 Unit Blood glucose 271-300 = 5 Unit Blood glucose 301-330 = 6 Unit Blood glucose 331-360 = 7 Unit Blood glucose 361-390 = 8 Unit Blood glucose 391-420 = 9 Unit Blood glucose 421-450 = 10 Unit 5. ID - Afebrile. No signs or symptoms of infe ction. Continue to monitor. - CBC within normal limits. 6. NEURO - No focal neurologic findings. Continue to monitor mental status. 7. RENAL - Urine output stable. Continue to monit or. 8. SOCIAL/DISPO - Mom at bedside and updated on plan of care. - PCP will be notified - Dispo pending diabetic teaching and en docrine clearance Patient will be seen and discussed with Team D and the attending, Dr. Cartagena on morning rounds. Elida Souza M.D. PEDIATRICS, PGY1 MSO#: [id number] Pedi Attending Note Patient was seen and examined by me on rounds on 04/18/16 at 10:15 a.m. I have reviewed her labs, imaging and notes and discussed her case with the residents on Team D. I have also reviewed her vital signs since admission in graph format, including HR, RR, BP, SPO2 and u.o. I agree with the assessment and plan as detailed in Dr. Souza's note above with additions below. Akash is a 15 yo obese female with DM2 admitted for non-ketotic hyperglyceima. She was doing well this a.m., VSS, she was alert and denied any nausea or vomitting. We appreciate endocrine recs and will continue to monitor her blood glucose as her insulin regimen is adjusted and she receives diabetic and nutrition education. Discussed healthy diet and exercise with patient and mom. Possible d/c home later today if completes diabetic education. Mom at bedside and updated.
--- OUTSIDE RECORDS SUMMARY | 2020-06-27 18:00 | XMS REPORT | Summary of Care ---
Author Author AKASH Baer R.N. Organization Unknown Address [facility] Phone Unavailable Care Team Providers Care Payroll Representative Name Role Phone CRIS Olivas, JOVITA Unavailable Unavailable JOVANA P.A., KAMILAH Unavailable Unavailable Buffy Hanna, Jovita Unavailable Unavailable TRISTA Olivas, AYANNA Unavailable Unavailable ROMA WARD [place], MALU FOSS Unavailable Unavailable ROMA Olivas, MALU Kearns Unavailable Cris WARD, Jovita Unavailable Unavailable Unavailable Unavailable Functional Status Name Dates Details Functional status health issues are not documented Status: Name Dates Details Cognitive status health issues are not d ocumented Status: Problems Name Dates Details Health maintenance examination (V70.0, Z 00.00) Status: Active Acanthosis nigricans (701.2, L83) Status: Active Fever and chills (780.60, R50.9) Status: Active Left flank pain (789.09, R10.9) Status: Active Left nephrolithiasis (592.0, N20.0) Status: Active Diabetes mellitus (250.00, E11.9) Status: Active Acute UTI (599.0, N39.0) Status: Active Flu vaccine need (V04.81, Z23) Status: Active Hematuria (599.70, R31.9) Status: Active Depression (311, F32.9) Status: Active Encounter for contraceptive management ( V25.9, Z30.9) Status: Active Childhood obesity (278.00, E66.9) Status: Active Need for vaccination (V05.9, Z23) Status: Active Secondary amenorrhea (626.0, N91.1) Status: Active Medications Name Dates Details OneTouch Verio w/Device Kit USE DIRECTED. Quantity: 1 JOVANA P.A., KAMILAH * Start : 06-Apr-2016 Active OneTouch Verio In Vitro Strip MONITOR 4-6 TIMES PER DAY AND NEEDED FOR HYPOGLYCEMIC SYMPTOMS at home and s chool. * Quantity: 200 Refills: 5 YAAYANNA GILMORE M.D. * Start : 19-Apr-2016 Active OneTouch Delica Lancets 33G MONITOR BLOOD SUGAR 4 TO 6 TIMES DAILY AND NEEDED FOR HYPOGLYCEMICSYMPTOMS * Quantity: 200 Refills: 5 AYANNA WESTON M.D. * Start : 19-Apr-2016 Active Ketostix In Vitro Strip Testing anytime BG is over 300 pre-meal, or when ill or vomiting[facility] * Quantity: 2 Refills: 5 AYANNA WESTON M.D. * Start : 19-Apr-2016 Active 50 Strip Box Glucagon Emergency 1 MG Injection Kit Inject 1mg intramuscularly for severe hypoglycemia, for home and school. * Quantity: 2 Refills: 2 AYANNA WESTON M.D. * Start : 19-Apr-2016 Active HumaLOG KwikPen 100 UNIT/ML Subcutaneous Solution Pen-injector INJECT 13 UNITS UNITS PLUS SLIDING SCALE SUB-Q BEFORE EACH MEAL, + 2 UNITS TO ND LOLLY PEN NEEDLE. Up to 60 units per day. * Quantity: 2 Refills: 5 AYANNA WESTON M.D. * Start : 19-Apr-2016 Active 5 x 3 ML Pen BD Pen Needle Blanca U/F 32G X 4 MM USE TO ADMINISTER INSULIN 4-6 TIMES DAILY * Quantity: 200 Refills: 5 AYANNA WESTON M.D. * Start : 19-Apr-2016 Active Lantus SoloStar 100 UNIT/ML Subcutaneous Solution Pen-injector INJECT 34 UNITS UNDER THE SKIN EVERY NIGHT AT BEDTIME * Quantity: 1 Refills: 5 AYANNA WESTON M.D. * Start : 24-Dec-2016 Active 5 x 3 ML Pen OneTouch Ultra Control In Vitro Solution USE DIRECTED. * Quantity: 1 Refills: 1 AYANNA WESTON M.D. Start : 06-May-2017 Active Sprintec 28 0.25-35 MG-MCG Oral Tablet TAKE 1 TABLET DAILY DIRECTED. * Quantity: 1 Refills: 11 JOVITA LYNCH M.D. * Start : 03-Jun-2018 Active 28 Tablet Pack Allergies and Adverse Reactions Name Dates Details No Known Drug Allergies (Allergy) Status : Active Past Medical History Name Dates Details History of Bilateral otitis media (382.9 , H66.93) Status: Resolved History of Cellulitis of hand, right (68 2.4, L03.113) Status: Resolved History of pharyngitis (V12.69, Z87.09) Status: Resolved History of Strep pharyngitis (034.0, J02 .0) Status: Resolved History of type 1 diabetes mellitus (V12 .29, Z86.39) Status: Resolved History of type 2 diabetes mellitus (V12 .29, Z86.39) Status: Resolved Procedures Procedure Dates Details Procedures not documented Immunization Name Dates Details Influenza Lot #: [id number] on: 01-Nov-2014 Gardasil 9 Intramuscular Suspension Lot #: [id number] on: 03-Jun-2018 Gardasil 9 Intramuscular Suspension Lot #: [id number] on: 22-Jul-2018 Fluzone Quadrivalent 0.5 ML Intramuscula r Suspension Lot #: [id number] on: 09-Sep-2018 Gardasil 9 Intramuscular Suspension Pref illed Syringe Lot #: [id number] on: 21-Nov-2018 Family History Name Dates Details No pertinent family history (V49.89, Z78 .9) Status: Active Name Dates Details No pertinent family history (V49.89, Z78 .9) Status: Active Social History Name Dates Details - Status: Name Dates Details Never smoker Vital Signs Date Test Result Details [id number]-Rhi-[id number]:25 Physical Findings 11 Status: Comments: PH Q-9 Adolescent Depression Screening Results Date Description Value Details Results not documented Plan of Care Name Dates Details Planned Observations Planned Goals not documented Instructions Name Dates Details Instructions not documented Encounters Appointment; AYANNA WESTON M.D. Encounter Diagnosis: Problem not documented On: 30-Sep-2017 9:30 Appointment; AYANNA WESTON M.D. Encounter Diagnosis: Problem not documented On: 30-Dec-2017 10:00 Appointment; AYANNA WESTON M.D. Encounter Diagnosis: Problem not documented On: 31-Mar-2018 10:00 Appointment; MIKI HSASAN M.D. Encounter Diagnosis: Problem not documented On: 03-Jun-2018 14:00 Appointment; AYANNA WESTON M.D. Encounter Diagnosis: Problem not documented On: 23-Jun-2018 10:00 Appointment; AYANNA WESTON M.D. Encounter Diagnosis: Problem not documented On: 23-Jun-2018 10:00 Appointment; JOVITA LYNCH M.D. Encounter Diagnosis: Problem not documented On: 22-Jul-2018 13:00 Appointment; [facility] COUNSELING Encounter Diagnosis: Problem not documented On: 04-Aug-2018 13:30 Appointment; KAMILAH WHALEY P.A. Encounter Diagnosis: Problem not documented On: 19-Aug-2018 11:15 Appointment; KAMILAH WHALEY P.A. Encounter Diagnosis: Problem not documented On: 21-Aug-2018 10:45 Appointment; KAMILAH WHALEY P.A. Encounter Diagnosis: Problem not documented On: 09-Sep-2018 13:30 Appointment; JOVITA LYNCH M.D. Encounter Diagnosis: Problem not documented On: 21-Nov-2018 13:00
--- OUTSIDE RECORDS SUMMARY | 2020-06-27 18:00 | XMS REPORT | Summary of Care ---
Author AKASH Herrera M.A. Organization Unknown Address [facility] Phone Unavailable Care Team Providers Care Business Practices Supervisor Name Role Phone CRIS Olivas, JOVITA Unavailable Unavailable JOVANA Peres.Carmencita., KAMILAH Unavailable Unavailable TRISTA Olivas, AYANNA Unavailable Unavailable ROMA WARD PR, MALU FOSS Unavailable Unavailable ROMA Olivas, MALU Kearns Unavailable Cris WARD, Jovita Unavailable Unavailable Unavailable Unavailable Functional Status Name Dates Details Functional status health issues are not documented Status: Name Dates Details Cognitive status health issues are not d ocumented Status: Problems Name Dates Details Health maintenance examination (V70.0, Z 00.00) Status: Active Acanthosis nigricans (701.2, L83) Status: Active Left flank pain (789.09, R10.9) Status: Active Left nephrolithiasis (592.0, N20.0) Status: Active Acute UTI (599.0, N39.0) Status: Active Flu vaccine need (V04.81, Z23) Status: Active Hematuria (599.70, R31.9) Status: Active Depression (311, F32.9) Status: Active Encounter for contraceptive management ( V25.9, Z30.9) Status: Active Childhood obesity (278.00, E66.9) Status: Active Need for vaccination (V05.9, Z23) Status: Active Secondary amenorrhea (626.0, N91.1) Status: Active Diabetes mellitus (250.00, E11.9) Status: Active Influenza B (487.1, J10.1) Status: Active Acute bronchitis (466.0, J20.9) Status: Active Depression screening negative (V79.0, Z1 3.31) Status: Active BMI 35.0-35.9,adult (V85.35, Z68.35) Status: Active Fever and chills (780.60, R50.9) Status: Active Medications Name Dates Details OneTouch [...] FOR HYPOGLYCEMICSYMPTOMS * Quantity: 200 Refills: 5 YAMANDO Melendrez.Tony, AYANNA * Start : 19-Apr-2016 Active Ketostix In Vitro Strip Testing anytime BG is over 300 pre-meal, or when ill or vomiting[facility] * Quantity: 2 Refills: 5 AYANNA WESTON M.D. * Start : 19-Apr-2016 Active 50 Strip Box Glucagon Emergency 1 MG Injection Kit Inject 1mg intramuscularly for severe hypoglycemia, for home and school. * Quantity: 2 Refills: 2 YAMANDO Melendrez.AYANNA Jimenez * Start : 19-Apr-2016 Active HumaLOG KwikPen 100 UNIT/ML Subcutaneous Solution Pen-injector INJECT 13 UNITS UNITS PLUS SLIDING SCALE SUB-Q BEFORE EACH MEAL, + 2 UNITS TO DE LOLLY PEN NEEDLE. Up to 60 units per day. * Quantity: 2 Refills: 5 AYANNA WESTON M.D. * Start : 19-Apr-2016 Active 5 x 3 ML Pen BD Pen Needle Blanca U/F 32G X 4 MM USE TO ADMINISTER INSULIN 4-6 TIMES DAILY * Quantity: 200 Refills: 5 YAMANDO Melendrez.AYANNA Jimenez * Start : 19-Apr-2016 Active Lantus SoloStar 100 UNIT/ML Subcutaneous Solution Pen-injector INJECT 34 UNITS UNDER THE SKIN EVERY NIGHT AT BEDTIME * Quantity: 1 Refills: 5 YAMANDO MAYANNA Ambrose * Start : 24-Dec-2016 Active 5 x 3 ML Pen OneTouch Ultra Control In Vitro Solution USE DIRECTED. * Quantity: 1 Refills: 1 AYANNA WESTON M.D. * Start : 06-May-2017 Active Sprintec 28 0.25-35 MG-MCG Oral Tablet TAKE 1 TABLET DAILY DIRECTED. * Quantity: 1 Refills: 11 JOVITA LYNCH M.D. * Start : 03-Jun-2018 Active 28 Tablet Pack Oseltamivir Phosphate 75 MG Oral Capsule TAKE 1 CAPSULE TWICE DAILY. * Quantity: 10 Refills: 0 JOVANA P.A., KAMILAH * Start : 01-Feb-2020 Active Cefdinir 300 MG Oral Capsule TAKE 1 CAPSULE EVERY 12 HOURS DAILY. * Quantity: 20 Refills: 0 JOVANA P.A., KAMILAH * Start : 01-Feb-2020 End : 11-Feb-2020 Active Allergies and Adverse Reactions Name Dates Details [...] Immunization Name Dates Details Influenza Lot #: [id number] on: 01-Nov-2014 Gardasil 9 Intramuscular Suspension Lot #: [id number] on: 03-Jun-2018 Gardasil 9 Intramuscular Suspension Lot #: [id number] on: 22-Jul-2018 Fluzone Quadrivalent 0.5 ML Intramuscula r Suspension Lot #: [id number] on: 09-Sep-2018 Gardasil 9 Intramuscular Suspension Pref illed Syringe Lot #: [id number] on: 21-Nov-2018 Family History Name Dates Details No pertinent family history (V49.89, Z78 .9) Status: Active Name Dates Details No pertinent family history (V49.89, Z78 .9) Status: Active Social History Name Dates Details - Status: Name Dates Details Never smoked tobacco (finding) Vital Signs Date Test Result Details [id number] Physical Findings 6 Status: Comments: PH Q-9 Adult Depression Screening Physical Findings 0 Status: Comments: [place] Screen - How many times in the past yr have you had 5 (for M) or 4 (for F) or 4 (for all > 65yrs) or more drinks in a day? [id number] Systolic blood pressure 121 mm[Hg] Status: Comments : Location: LUE; Position: Sitting Diastolic blood pressure 77 mm[Hg] Status: Comment s: Location: LUE; Position: Sitting Body height 59.06 in Status: Physical Findings 2 Status: Comments: 2- 20 Stature Percentile Weight 175.25 lb Status: Body mass index (BMI) [Ratio] 35.33 kg/m2 Status: Body surface area Derived from formula 1.74 m2 S tatus: Physical Findings 93 Status: Comments: 2- 20 Weight Percentile Physical Findings 97 Status: Comments: BM I Percentile Body temperature 99 f Status: Comments: Me thod: Temporal Heart Rate 106 /min Status: Respiratory rate 16 /min Status: Physical Findings 0 Status: Comments: Pa in Scale Results Date Description Value Details :43 [O] Streptococcus Test Rapid (In Office) Group A Strep Screen neg (Normal) :43 [O] Flu Test (in Office ) Flu A neg (Normal) Flu B positive (Abnormal ) Plan of Care Name Dates Details Planned Observations Planned Goals not documented Interventions Provided Medication Changes* Cefdinir 300 MG Oral Capsule - Start * Oseltamivir Phosphate 75 MG Oral Capsule - Start Labs/Procedures/Imaging* [O] Flu Test (in Office ); Done: 01 Feb 2020 * [O] Streptococcus Test Rapid (In Office); Done: 01 Feb 2020 * Tobacco Use Screening; Done: 01 Feb 2020 * Tobacco Use Screening; Done: 01 Feb 2020 Plan* s & s of dehydration. rest, fluids.control temp with antipyretics. * RTC if fever still persists in 3 days. * [place] virus screen: negative Instructions Name Dates Details Instructions not documented Encounters Appointment; AYANNA WESTON M.D. Encounter Diagnosis: Problem not documented On: 31-Mar-2018 10:00 Appointment; MIKI HASSAN M.D. Encounter Diagnosis: Problem not documented On: 03-Jun-2018 14:00 Appointment; AYANNA WESTON M.D. Encounter Diagnosis: Problem not documented On: 23-Jun-2018 10:00 Appointment; AYANNA WESTON M.D. Encounter Diagnosis: Problem not documented On: 23-Jun-2018 10:00 Appointment; JOVITA LYNCH M.D. Encounter Diagnosis: Problem not documented On: 22-Jul-2018 13:00 Appointment; [facility] Encounter Diagnosis: Problem not documented On: 04-Aug-2018 13:30 Appointment; KAMILAH WHALEY P.A. Encounter Diagnosis: Problem not documented On: 19-Aug-2018 11:15 Appointment; KAMILAH WHALEY P.A. Encounter Diagnosis: Problem not documented On: 21-Aug-2018 10:45 Appointment; KAMILAH WHALEY P.A. Encounter Diagnosis: Problem not documented On: 09-Sep-2018 13:30 Appointment; JOVITA LYNCH M.D. Encounter Diagnosis: Problem not documented On: 21-Nov-2018 13:00 Appointment; KAMILAH WHALEY P.A. Encounter Diagnosis: Problem not documented On: 01-Feb-2020 11:00
--- OUTSIDE RECORDS SUMMARY | 2020-06-27 18:00 | XMS REPORT | Summary of Care ---
Author Author AKASH GOFF Organization Unknown Address Unknown Phone Unavailable Care Team Providers Care Bulb Packer Name Role Phone CRIS Olivas, JOVITA Unavailable Unavailable KAMILAH GOFF Unavailable Unavailable TRISTA Olivas, AYANNA Unavailable Unavailable ROMA WARD ME, MALU FOSS Unavailable Unavailable ROMA Olivas, MALU [...] Verio w/Device Kit USE DIRECTED. Quantity: 1 KAMILAH GOFF * Start : 06-Apr-2016 Active OneTouch Verio In Vitro Strip MONITOR 4-6 TIMES PER DAY AND NEEDED FOR HYPOGLYCEMIC SYMPTOMS at home and s chool. * Quantity: 200 Refills: 5 AYANNA WESTON M.D. * Start : 19-Apr-2016 Active OneTouch Delica Lancets 33G MONITOR BLOOD SUGAR 4 TO 6 TIMES DAILY AND NEEDED FOR HYPOGLYCEMICSYMPTOMS * Quantity: 200 Refills: 5 TRISTA Olivas, AYANNA * Start : 19-Apr-2016 Active Ketostix In Vitro Strip Testing anytime BG is over 300 pre-meal, or when ill or vomiting. [facility] * Quantity: 2 [...] BEFORE EACH MEAL, + 2 UNITS TO IN LOLLY PEN NEEDLE. Up to 60 units per day. * Quantity: 2 Refills: 5 AYANNA WESTON M.D. * Start : 19-Apr-2016 Active 5 x 3 ML Pen BD Pen Needle Blanca U/F 32G X 4 MM USE TO ADMINISTER INSULIN 4-6 TIMES DAILY * Quantity: 200 Refills: 5 YAAYANNA GILMORE M.D. * Start : 19-Apr-2016 Active Lantus [...] Immunization Name Dates Details Influenza Lot #: [id number] on: 01-Nov-2014 Gardasil 9 Intramuscular Suspension Lot #: [id number] on: 03-Jun-2018 Gardasil 9 Intramuscular Suspension Lot #: [id number] on: 22-Jul-2018 Fluzone Quadrivalent 0.5 ML Intramuscula r Suspension Lot #: [id number] on: 09-Sep-2018 Gardasil 9 Intramuscular Suspension Pref illed Syringe Lot #: [id number] on: 21-Nov-2018 Family History Name Dates Details No pertinent family history (V49.89, Z78 .9) Status: Active Name Dates Details No pertinent family history (V49.89, Z78 .9) Status: Active Social History Name Dates Details - Status: Name Dates Details Never smoked tobacco (finding) Vital Signs Date Test Result Details [id number] Physical Findings 6 Status: Comments: PH Q-9 Adult Depression Screening Physical Findings 0 Status: Comments: [place] Screen - How many times in the past yr have you had 5 (for M) or 4 (for F) or 4 (for all > 65yrs) or more drinks in a day? [id number] Systolic blood pressure 121 mm[Hg] Status: Comments [...] in Scale Results Date Description Value Details Results not documented Plan of Care Name Dates Details Planned Observations Planned Goals not documented Interventions Provided Medication Changes* Cefdinir 300 MG Oral Capsule - Start * Oseltamivir Phosphate 75 MG Oral Capsule - Start Labs/Procedures/Imaging* Tobacco Use Screening; Done: 01 Feb 2020 [...] documented On: 21-Aug-2018 10:45 Appointment; KAMILAH WHALEY PRuy Encounter Diagnosis: Problem not documented On: 09-Sep-2018 13:30 Appointment; JOVITA LYNCH M.D. Encounter Diagnosis: Problem not documented On: 21-Nov-2018 13:00 Appointment; KAMILAH WHALEY P.A. Encounter Diagnosis: Problem not documented On: 01-Feb-2020 11:00
--- OUTSIDE RECORDS SUMMARY | 2020-06-27 18:00 | XMS REPORT | Continuity of Care Document ---
Author Author [facility] t Organization [facility] Address [address] [place] [address] [address] [place] [address] Phone Unavailable Care Team Providers Care Digital Media Director Name Role Phone KAMILAH WHALEY P.A. Attphys Unavailable JOVITA LYNCH M.D. Attphys Unavailable Harsha Bond Attphys C[facility]-CLINIC, COUNSELING Attphys Unavailable AYANNA WESTON M.D. Attphys Unavailable MIKI HASSAN M.D. Attphys Unavailable Will Shin Attphys Will Shin Admphys Problems Condition Name Condition Details Condition Category Status Onset Date Resolution Date Last Treatment Date Treating Clinician Comments Source R31.9 - HEMATURIA, UNSPECIFIED R10.9 - U R31.9 - HEMATURIA, UNSPECIFIED R10.9 - U Active 08/21/2018 Debbie Smith Diagnosis Active 2018-08-21 00:01:00 2018-08-29 14:02:00 [facility] BLOOD GLUCOSE LEVEL HIGH BLOO D GLUCOSE LEVEL HIGH Active 04/17/2016 [facility] Diagnosis Active 2016-04-17 00:00:00 2016-04-19 15:55:00 [facility] History of Bilateral otitis media History of Bilateral otitis me phyllis Problem Resolved [facility] History of Cellulitis of hand, right History of Cellulitis o f hand, right Problem Resolved [facility] History of pharyngitis History of pharyngitis Problem Resolved [facility] History of Strep pharyngitis History of Strep pharyngitis Problem Re solved [facility] History of type 2 diabetes mellitus History of type 2 diabetes m ellitus Problem Resolved [facility] Flu vaccine need Flu vaccine need Problem Active [facility] Encounter for contraceptive management Encounter for contrac eptive management Problem Active [facility] Acanthosis nigricans Acanthosis nigricans Problem Active [facility] Childhood obesity Childhood obesity Problem Active [facility] Need for vaccination Need for vaccination Problem Active [facility] Depression Depression Problem Active [facility] Diabetes mellitus Diabetes mellitus Problem Active [facility] Acute UTI Acute UTI [facility] Fever and chills Fever and chills Problem Active [facility] Left flank pain Left flank pain Problem Active [facility] Hematuria Hematuria Problem [facility] Left nephrolithiasis Left nephrolithiasis Problem Active [facility] History of type 1 diabetes mellitus History of type 1 diabetes m ellitus Problem Resolved [facility] Secondary amenorrhea Secondary amenorrhea Problem Active [facility] Influenza B Influenza B Problem Active [facility] Acute bronchitis Acute bronchitis Problem Active [facility] Depression screening negative Depression screening negative Problem Active [facility] BMI 35.0-35.9,adult BMI 35.0-35.9,adult Problem Active [facility] Unspecified abdominal pain Uns pecified abdominal pain 03/10/2019 [facility] [place] Problem 2019-03-10 15:58:41 [facility] Hematuria, unspecified Wilfredo turia, unspecified 03/10/2019 [facility] [place] Problem 2019-03-10 15:58:41 [facility] Fever, unspecified Feve r, unspecified 03/10/2019 [facility] [place] Problem 2019-03-10 15:58:41 [facility] Other specified disorders of kidney and ureter Other specified disorders of kidney and ureter 03/10/2019 [facility] [place] Problem 2019-03-10 15:58:41 Debbie Smith Cyst of kidney, acquired Cyst of kidney, acquired 03/10/2019 [facility] [place] Problem 2019-03-10 15:58:41 Debbie Smith DIABETES DUE TO UNDRL COND W DIABETIC CH DIABETES DUE TO UNDRL COND W DIABETIC CH Active [facility] Diagnosis Active 2016-04-19 15:55:00 Debbie Smith Type 2 diabetes mellitus without complications Type 2 diabetes mellitus without complications 08/28/2018 03/10/2019 [facility] BILLIE Arredondo Problem 2018-08-28 04:52:54 2019-03-10 15:58:41 2019-03-10 15:58:41 [facility] Allergies, Adverse Reactions, Alerts Allergy Name Allergy Type Status Severity Reaction(s) Onset Date Inacti ve Date Treating Clinician Comments Source Food Shellfish Food Shellfish Active [facility] No Known Drug Allergies No Known Drug Allergies Active [facility] Family History Family Member Diagnosis Comments Start Date Stop Date Source Unknown Family Member Family History 2014-01-18 17:18:04 2 17:18:04 [facility] Social History Social Habit Start Date Stop Date Quantity Comments Source Social History 2014-01-18 17:18:04 2014-01-18 17:18:04 [facility] Smoking Status Start Date Stop Date Source Social History [facility] Medications Ordered Medication Name Filled Medication Name Start Date Stop Da te Current Medication? Ordering Clinician Indication Dosage Frequency Signature (SIG) Comments Components Source Oseltamivir Phosphate 75 MG Oral Capsule Oseltamivir P hosphate 75 MG Oral Capsule 2020-02-01 00:00:00 Yes KAMILAH WHALEY P.A. Q0 .5D TAKE 1 CAPSULE TWICE DAILY. [facility] Sprintec 28 0.25-35 MG-MCG Oral Tablet Sprintec 28 0.25-35 M G-MCG Oral Tablet 2018-06-03 00:00:00 Yes JOVITA LYNCH M.D. QD TAKE 1 TABLET DAILY DIRECTED. [facility] OneTouch Ultra Control In Vitro Solution OneTouch Ultr a Control In Vitro Solution 2017-05-06 00:00:00 Yes AYANNA WESTON M.D. USE DIRECTED. [facility] Lantus SoloStar 100 UNIT/ML Subcutaneous Solution Pen- injector Lantus SoloStar 100 UNIT/ML Subcutaneous Solution Pen-injector 2016-12-24 00:00:00 Yes AYANNA WESTON M.D. INJECT 34 UNITS UNDER THE SKIN EVERY NIG HT AT BEDTIME [facility] Insulin, Aspart, Human 2016-04-20 12:30:00 No Notes: Roll in palms of hands gently; Do not shake vigorously. (Same as: NovoLOG) "single patient use only" WASTE: F/P - Black; E - Municipal Trash Bin Stable for 28 days at room temperature. Expires in days from Date Debbie Moscosoann Insulin, Aspart, Human 2016-04-19 21:30:00 No Notes: Roll in palms of hands gently; Do not shake vigorously. (Same as: NovoLOG) "single patient use only" WASTE: F/P - Black; E - Municipal Trash Bin Stable for 28 days at room temperature. Expires in days from Date Debbie Smith Insulin, Aspart, Human 2016-04-19 16:30:00 No Notes: Roll in palms of hands gently; Do not shake vigorously. (Same as: NovoLOG) "single patient use only" WASTE: F/P - Black; E - Municipal Trash Bin Stable for 28 days at room temperature. Expires in days from Date [facility] Insulin Glargine 2016-04-19 02:00:00 No Notes: Same as Lanmarielyus Solostar PEN Do not hold insulin without contacting prescriber "single patient use only" WASTE: F/P - Black; E - Municipal Trash Bin Stable for 28 days at room temperature. Expires in days from Date [facility] OneTouch Verio In Vitro Strip OneTouch Verio In Vitro Strip 2015 00:00:00 Yes AYANNA WESTON M.D. MONITOR 4-6 TIMES PER DAY AND NEEDED FOR HYPOGLYCEMIC SYMPTOMS at home and school. [facility] OneTouch Delica Lancets 33G OneTouch Delica Lancets 33G 2016-04-19 00:00:00 Yes AYANNA WESTON M.D. MONITOR BL OOD SUGAR 4 TO 6 TIMES DAILY AND NEEDED FOR HYPOGLYCEMICSYMPTOMS [facility] Ketostix In Vitro Strip Ketostix In Vitro Strip 2016-04-19 00:00:00 Yes AYANNA WESTON M.D. Testing anytim e BG is over 300 pre-meal, or when ill or vomiting. Needed at school and home. [facility] Glucagon Emergency 1 MG Injection Kit Glucagon Emergency 1 M G Injection Kit 2016-04-19 00:00:00 Yes AYANNA WESTON M.D. Inject 1mg intramuscularly for severe hypoglycemia, for home and school. [facility] HumaLOG KwikPen 100 UNIT/ML Subcutaneous Solution Pen- injector HumaLOG KwikPen 100 UNIT/ML Subcutaneous Solution Pen-injector 2016-04-19 00:00:00 Yes AYANNA WESTON M.D. INJECT 13 UNITS UNITS PLUS SLIDING SCALE SUB-Q BEFORE EACH MEAL, + 2 UNITS TO PRIME PEN NEEDLE. Up to 60 units per day. [facility] BD Pen Needle Blanca U/F 32G X 4 MM BD Pen Needle Blanca U/F 32G X 4 MM 2016-04-19 00:00:00 Yes AYANNA WESTON M.D. US E TO ADMINISTER INSULIN 4-6 TIMES DAILY [facility] insulin glargine 100 units/mL subcutaneous solution 04-18 19:12:00 Yes 34 unit, SUB-Q, Bedtime, 0 Refill(s) [facility] Insulin, Aspart, Human 2016-04-18 19:12:00 Yes 1-8unit, SUB-Q, TID- Meals, PRN Blood Glucose Results, 0 Refill(s) [facility] Insulin Glargine 2016-04-18 02:00:00 No Notes: Same as Lantus Solostar PEN Do not hold insulin without contacting prescriber "single patient use only" WASTE: F/P - Black; E - Municipal Trash Bin Stable for 28 days at room temperature. Expires in days from Date [facility] Insulin Glargine 2016-04-17 21:46:00 No Notes: Same as Lantus Solostar PEN Do not hold insulin without contacting prescriber "single patient use only" WASTE: F/P - Black; E - Municipal Trash Bin Stable for 28 days at room temperature. Expires in days from Date [facility] Insulin, Aspart, Human 2016-04-17 21:30:00 No Notes: Roll in palms of hands gently; Do not shake vigorously. (Same as: NovoLOG) "single patient use only" WASTE: F/P - Black; E - Municipal Trash Bin Stable for 28 days at room temperature. Expires in days from Date [facility] sucrose 2016-04-17 19:40:00 No 0.2 mL, Route: PO, Drug Form: LIQ, Dosing Weight 78.5, kg, PRN, PRN Procedure, Start date: 04/17/16 14:40:00 CDT, Duration: 3 doses or times, Stop date: Limited # of times [facility] pentafluoropropane-tetrafluoroethane topical 2016-04-17 19:40:00 No Notes: (Same as: Pain Ease Medium Stream) WASTE: Aerosol - Return to Pharmacy [facility] Insulin, Aspart, Human 2016-04-17 19:36:00 No Notes: Roll in palms of hands gently; Do not shake vigorously. (Same as: NovoLOG) "single patient use only" WASTE: F/P - Black; E - Municipal Trash Bin Stable for 28 days at room temperature. Expires in days from Date [facility] Dextrose 50% Syringe 2016-04-17 19:36:00 No 25 gm, 50 mL, Route: IVP, Drug Form: INJ, Dosing Weight 78.5, kg, PRN, PRN Blood Glucose Results, Start date: 04/17/16 14:36:00 CDT, Duration: 30 day, Stop date: 05/17/16 14:35:00 CDT [facility] normal saline 0.9% IV 1,000 mL 2016-04-17 15:59:00 No 1,000 mL, Rate: 100 ml/hr, Infuse over: 10 hr, Route: IV, Dosing Weight 78.5 kg, Total Volume: 1,000, Priority: STAT, Start date: 04/17/16 10:59:00 CDT, Duration: 1 doses or times, Stop date: 04/17/16 20:58:00 CDT [facility] OneTouch Verio w/Device Kit OneTouch Verio w/Device Kit 2016-04-06 00:00:00 Yes KAMILAH Garsia USE DIRECTED. [facility] Augmentin 400-57 MG/5ML SUSR 2014-01-18 17:18:04 Yes (Active) [facility] Immunizations Ordered Immunization Name Filled Immunization Name Date Status Comments Source Gardasil 9 Intramuscular Suspension Prefilled Syringe 2018-11-21 15:15:[address] [facility] Fluzone Quadrivalent 0.5 ML Intramuscular Suspension 2018-09-09 15:11:[address] [facility] Gardasil 9 Intramuscular Suspension 2018-07-22 14:55:00 Co mpleted [facility] Gardasil 9 Intramuscular Suspension 2018-06-03 16:11:00 Co mpleted [facility] Influenza 2014-11-01 15:55:00 Completed [facility] Vital Signs Vital Name Observation Time Observation Value Comments Source Systolic blood pressure 2020-02-01 10:52:00 121 mm[Hg] Loca tion: LUE; Position: Sitting [facility] Diastolic blood pressure 2020-02-01 10:52:00 77 mm[Hg] Loc ation: LUE; Position: Sitting [facility] Body height 2020-02-01 10:52:00 59.06 [in_us] [facility] Weight 2020-02-01 10:52:00 175.25 [lb_av] [facility] Body mass index (BMI) [Ratio] 2020-02-01 10:52:00 35.33 kg/m2 [facility] Body temperature 2020-02-01 10:52:00 99 [degF] Method: Temporal [facility] Heart Rate 2020-02-01 10:52:00 106 /min [facility] Respiratory rate 2020-02-01 10:52:00 16 /min [facility] BP Systolic 2018-11-21 13:54:00 119 mm[Hg] Location: RUE; Positi on: Sitting [facility] BP Diastolic 2018-11-21 13:54:00 82 mm[Hg] Location: RUE; Positi on: Sitting [facility] Height 2018-11-21 13:54:00 150 cm [facility] Weight 2018-11-21 13:54:00 82.95 kg [facility] Body Mass Index Calculated 2018-11-21 13:54:00 36.87 kg/m2 [facility] Temperature 2018-11-21 13:54:00 97.2 [degF] Method: Tympanic [facility] Heart Rate 2018-11-21 13:54:00 98 /min [facility] BP Systolic 2018-09-09 13:48:00 117 mm[Hg] Location: LUE; Positi on: Sitting [facility] BP Diastolic 2018-09-09 13:48:00 79 mm[Hg] Location: LUE; Positi on: Sitting [facility] Height 2018-09-09 13:48:00 59 [in_us] [facility] Weight 2018-09-09 13:48:00 190.5 [lb_av] [facility] Body Mass Index Calculated 2018-09-09 13:48:00 38.48 kg/m2 [facility] Temperature 2018-09-09 13:48:00 97.9 [degF] Method: Temporal [facility] Respiration Rate 2018-09-09 13:48:00 16 /min [facility] Heart Rate 2018-09-09 13:48:00 88 /min [facility] BP Systolic 2018-08-21 10:56:00 125 mm[Hg] Location: LUE; Positi on: Sitting [facility] BP Diastolic 2018-08-21 10:56:00 77 mm[Hg] Location: LUE; Positi on: Sitting [facility] Height 2018-08-21 10:56:00 59.06 [in_us] [facility] Weight 2018-08-21 10:56:00 190.375 [lb_av] [facility] Body Mass Index Calculated 2018-08-21 10:56:00 38.37 kg/m2 [facility] Temperature 2018-08-21 10:56:00 97.6 [degF] Method: [facility] Heart Rate 2018-08-21 10:56:00 99 /min [facility] Respiration Rate 2018-08-21 10:56:00 16 /min [facility] BP Systolic 2018-08-19 11:37:00 124 mm[Hg] Location: RLE; Positi on: Sitting [facility] BP Diastolic 2018-08-19 11:37:00 80 mm[Hg] Location: RLE; Positi on: Sitting [facility] Height 2018-08-19 11:37:00 59.06 [in_us] [facility] Weight 2018-08-19 11:37:00 190 [lb_av] [facility] Body Mass Index Calculated 2018-08-19 11:37:00 38.3 kg/m2 [facility] Temperature 2018-08-19 11:37:00 98.3 [degF] Method: Temporal [facility] Heart Rate 2018-08-19 11:37:00 98 /min [facility] Respiration Rate 2018-08-19 11:37:00 16 /min [facility] BP Systolic 2018-07-22 13:42:00 126 mm[Hg] Location: RUE; Positi on: Sitting [facility] BP Diastolic 2018-07-22 13:42:00 64 mm[Hg] Location: RUE; Positi on: Sitting [facility] Height 2018-07-22 13:42:00 150 cm [facility] Weight 2018-07-22 13:42:00 85.3 kg [facility] Body Mass Index Calculated 2018-07-22 13:42:00 37.91 kg/m2 [facility] Temperature 2018-07-22 13:42:00 98.4 [degF] Method: Tympanic [facility] Heart Rate 2018-07-22 13:42:00 102 /min [facility] Height 2016-04-19 16:46:00 151.3 cm [facility] BMI Calculated 2016-04-19 16:46:00 [facility] Weight 2016-04-19 16:46:00 [facility] Systolic (mm Hg) 2016-04-19 16:00:00 Faisal [facility] Diastolic (mm Hg) 2016-04-19 16:00:00 [facility] Respitory Rate 2016-04-19 16:00:00 [facility] Heart Rate 2016-04-19 16:00:00 [facility] Temperature Oral (F) 2016-04-19 16:00:00 98 F [facility] Heart Rate 2016-04-19 13:00:00 [facility] Temperature Oral (F) 2016-04-19 13:00:00 98.1 F [facility] Systolic (mm Hg) 2016-04-19 13:00:00 Faisal [facility] [place] Diastolic (mm Hg) 2016-04-19 13:00:00 [facility] Respitory Rate 2016-04-19 13:00:00 [facility] Heart Rate 2016-04-19 09:04:00 [facility] Temperature Oral (F) 2016-04-19 09:04:00 97.6 F [facility] Systolic (mm Hg) 2016-04-19 09:04:00 Faisal rial [facility] Diastolic (mm Hg) 2016-04-19 09:04:00 [facility] Respitory Rate 2016-04-19 09:04:00 [facility] Weight 2016-04-17 19:50:00 [facility] Weight 2016-04-17 15:41:00 [facility] Procedures Procedure Date / Time Performed Performing Clinician Sourc e [LH] GC/CT by Amp Det (APTIMA) 2018-11-21 00:00:00 [facility] [H] Trich vaginalis RNA 2018-11-21 00:00:00 [facility] [[facility]] CULTURE, URINE, ROUTINE 2018-09-09 00:00:[address] [facility] CT Abdomen/Pelvis w/wo contrast [id number] 2018-08-21 00:00:00 [facility] [[facility]] CULTURE, URINE, ROUTINE 2018-08-19 00:00:00 [facility] Encounters Start Date/Time End Date/Time Encounter Type Admission Type Attendi [facility] Care Department Encounter ID Source 2020-02-01 11:00:00 2020-02-01 11:00:00 Appointment; KAMILAH WHALEY P.A. CRUZ, LETICIA, P.A. [facility] [id number] [facility] 2018-11-21 13:00:00 2018-11-21 13:00:00 Appointment; ROBB LYNCH RA, M.D. BENJAMINS, LAURA, M.D. [facility] General Pediatrics [id number] [facility] 2018-09-09 13:30:00 2018-09-09 13:30:00 Appointment; KAMILAH WHALEY P.A. CRUZ, LETICIA, P.A. [facility] [address] [id number] [facility] 2018-08-21 15:17:00 2018-08-21 23:59:00 Outpatient Mariely Bond OIB OIB [id number] 2018-08-21 10:45:00 2018-08-21 10:45:00 Appointment; KAMILAH WHALEY P.A. CRUZ, LETICIA, P.A. [facility] [address] [id number] [facility] 2018-08-19 11:15:00 2018-08-19 11:15:00 Appointment; KAMILAH WHALEY P.A. CRUZ, LETICIA, P.A. [facility] [id number] [facility] 2018-08-04 13:30:00 2018-08-04 13:30:00 Appointment; LUANNE-Anna CARRENO [facility], SOURAV [facility] UTP [id number] [facility] 2018-07-22 13:00:00 2018-07-22 13:00:00 Appointment; ROBB LYNCH RA, M.D. BENJAMINS, LAURA, M.D. [facility] UTP [id number] [facility] 2018-06-23 10:00:00 2018-06-23 10:00:00 Appointment; AYANNA WESTON M.D. YAFI, MICHAEL, M.D. [facility] UTP [id number] [facility] 2018-06-23 10:00:00 2018-06-23 10:00:00 Appointment; AYANNA WESTON M.D. YAFI, MICHAEL, M.D. [facility] UTP [id number] [facility] 2018-06-03 14:00:00 2018-06-03 14:00:00 Appointment; MIKI HASSAN M.D. BEYDA, REBECCA, M.D. [facility] UTP [id number] [facility] 2018-03-31 10:00:00 2018-03-31 10:00:00 Appointment; AYANNA WESTON M.D. YAFI, MICHAEL, M.D. [facility] UTP [id number] [facility] 2017-12-30 10:00:00 2017-12-30 10:00:00 Appointment; AYANNA WESTON M.D. YAFI, MICHAEL, M.D. [facility] UTP [id number] [facility] 2017-09-30 09:30:00 2017-09-30 09:30:00 Appointment; AYANNA WESTON M.D. YAFI, MICHAEL, M.D. [facility] UTP [id number] [facility] 2017-07-01 10:00:00 2017-07-01 10:00:00 Appointment; AYANNA WESTON M.D. YAFI, MICHAEL, M.D. [facility] UTP [id number] [facility] 2017-05-06 09:30:00 2017-05-06 09:30:00 Appointment; AYANNA WESTON M.D. YAFI, MICHAEL, M.D. [facility] UTP [id number] [facility] 2017-01-28 09:30:00 2017-01-28 09:30:00 Appointment; AYANNA WESTON M.D. YAFI, MICHAEL, M.D. [facility] UTP [id number] [facility] 2016-11-05 08:45:00 2016-11-05 08:45:00 Appointment; AYANNA WESTON M.D. YAFI, MICHAEL, M.D. [facility] UTP [id number] [facility] 2016-04-17 10:41:00 2016-04-19 15:55:00 Outpatient Will Campos [facility] [id number] 2014-01-18 11:18:04 2014-01-18 11:18:04 [id number] Results Test Description Test Time Test Comments Results Result Comments Source [O] Streptococcus Test Rapid (In Office) 2020-02-01 14:43:00 Test Item Group A Strep Screen; Normal (test code = 78925-9) neg N [facility][O] Flu Test (in Office )2020-02-01 14:43:00* Test Item Value Reference Range Interpretation Comments Flu A (test code = Flu A) neg N Flu B (test code = Flu B) positive A [facility][LH] GC/CT by Amp Det (APTIMA)2018-11-21 22:00:01 * Test Item Value Reference Range Interpretation Comments Source APTIMA (test code = Source APTIMA) Urine N gonorrhea by Amp Det (APTIMA) (test code = 34729-7) Negative Negative The APTIMA assay is a target amplification nucleic acid probe test utilizingtarget capture for the qualitative detection and differentiation of ribosomalRNA from Neisseria gonorrhoeae to aid in the diagnosis of disease fromsymptomatic and asymptomatic individuals using the PANTHER System.This assay utilizes FDA cleared IVD reagents. Performance characteristics havebeen verified by the [facility] within [facility].The [facility] is authorized under the Clinical LaboratoryImprovement Amendments of 1988 (CLIA-88) to perform high complexity testing. C trachomatis by Amp Det (APTIMA) (test code = 20529-9) Negative Negative The APTIMA assay is a target amplification nucleic acid probe test utilizingtarget capture for the qualitative detection and differentiation of ribosomalRNA from Chlamydia trachomatis to aid in the diagnosis of disease fromsymptomatic and asymptomatic individuals using the PANTHER System.This assay utilizes FDA cleared IVD reagents. Performance characteristics havebeen verified by the [facility] within [facility].The [facility] is authorized under the Clinical LaboratoryImprovement Amendments of 1988 (CLIA-88) to perform high complexity testing. [facility][H] Trich vaginalis [id number] 22:00:01* Test Item Value Reference Range Interpretation Comments Trich vaginalis RNA (test code = Trich vaginalis RNA) Negative Negative Performed At: [facility] [place] [address] [id number] Analia WARD Ph:[phone] [facility][O] Urine Dipstick (In Office)2018-09-09 13:54:00 * Test Item Value Reference Range Interpretation Comments Glucose (test code = Glucose) 500 LEUKOCYTES (test code = LEUKOCYTES) neg N NITRITE; Normal (test code = 90050-0) neg N UROBILINOGEN; Normal (test code = 18342-1) neg N PROTEIN; Normal (test code = 37974-7) neg N pH (test code = pH) 5 URINE BLOOD (test code = 98283-2) about 250 SPECIFIC GRAVITY (test code = 2965-2) 1.015 KETONES (test code = 02348-6) small BILIRUBIN; Normal (test code = 61463-1) neg N COLOR URINE; Normal (test code = 5778-6) yellow N APPEARANCE; Normal (test code = 5767-9) clear N [facility]] CULTURE, URINE, [id number] 00:00:00* Test Item Value Reference Range Interpretation Comments Urine Culture, Routine (test code = 630-4) Final report Result 1 (test code = Result 1) No growth [facility] PhysiciansCT Abdomen/Pelvis w/wo contrast [id number] 15:37:00EXAM: CT ABDOMEN AND PELVIS WITH CONTRASTDATE: 08/21/2018 at 3:50 PM CDTINDICATION: - R31.9 Hematuria, unspecifiedCOMPARISON: None.TECHNIQUE: Volumetric CT of the abdomen and pelvis is acquired with IVcontrast. Axial, coronal and sagittal images are provided.Postcontrast phases: Venous.IV contrast: .Oral contrast: None.DLP: 2928.0 mGy-cm.FINDINGS: Lines, tubes and hardware: None.Lower thorax: Clear.Liver: Normal.Biliary tree: No intra- or extrahepatic biliary ductal dilation.Gallbladder: Normal. No CT evidence of gallstones.Pancreas: Normal.Spleen: Normal.Adrenals: Normal.Kidneys and ureters: No hydronephrosis. No kidney or ureteral stone identified.There is diffuse mild thickening and dilation of the left ureter. There is mildperiureteral stranding on the left side. There is urothelial enhancement of theleft pelvis and ureter.Bladder: Normal.Reproductive organs: Uterus and adnexa are unremarkable.Gastrointestinal tract: Normal caliber.Appendix: Normal.Peritoneum, mesentery and retroperitoneum: No free air, ascites or loculatedfluid.Lymph nodes: Normal.Vasculature: Normal.Bones: No acute abnormality.Soft tissues: Normal.IMPRESSION: 1. Diffuse mild urothelial thickening, very minimal dilation, and periureteralfat stranding associated with the left ureter and renal pelvis may be sequelaeof recently passed stone. No kidney or ureteral sto ne identified. No calculusidentified in the transition point at the ureterovesic al junction.2. Large simple cyst in the right kidney.RECOMMENDATIONS: None.--Th is report was dictated by a Faucets Assembler/Fellow. I have personallyreviewe d the images aswell as the Resident's interpretation and agree with the findings .Read by: López Johns MD Resident: López Johns MDDictated Date/time: 08/21/18 16:20Electronically Signed by: Lima Taylor 08/21/1817:16FINAL REPORTUn[facility][O] Urine Dipstick (In Office)2018-08-21 11:05:00* Test Item Value Reference Range Interpretation Comments Glucose (test code = Glucose) normal N LEUKOCYTES (test code = LEUKOCYTES) + NITRITE; Normal (test code = 67399-3) neg N UROBILINOGEN; Normal (test code = 47683-1) neg N PROTEIN (test code = 76292-8) trace pH (test code = pH) 5 URINE BLOOD (test code = 00461-4) about 50 SPECIFIC GRAVITY (test code = 2965-2) 1.015 KETONES; Normal (test code = 32997-8) neg N BILIRUBIN; Normal (test code = 57786-8) neg N COLOR URINE; Normal (test code = 5778-6) yellow N APPEARANCE (test code = 5767-9) cloudy [facility][O] Urine Dipstick (In Office)2018-08-19 11:42:00 * Test Item Value Reference Range Interpretation Comments Glucose (test code = Glucose) 1000mg/dL LEUKOCYTES (test code = LEUKOCYTES) ++ NITRITE (test code = 91185-2) + UROBILINOGEN; Normal (test code = 39769-6) neg N PROTEIN (test code = 36356-8) 30 pH (test code = pH) 5 URINE BLOOD (test code = 50920-3) about 250 SPECIFIC GRAVITY (test code = 2965-2) 1.010 KETONES; Normal (test code = 59229-5) neg N BILIRUBIN; Normal (test code = 46354-0) neg N COLOR URINE; Normal (test code = 5778-6) yellow N APPEARANCE (test code = 5767-9) cloudy COMMENT (test code = COMMENT) odor [facility]] CULTURE, URINE, [id number] 00:00:00* Test Item Value Reference Range Interpretation Comments Urine Culture, Routine; Abnormal (test code = 630-4) Final report A Result 1 (test code = Result 1) Escherichia coli A Greater than 100,000 colony forming units per mLCefazolin <=4 ug/mLCefazolin with an YANI <=16 predicts susceptibility to the oral agentscefaclor, cefdinir, cefpodoxime, cefprozil, cefuroxime, cephalexin,and loracarbef when used for therapy of uncomplicated urinary tractinfections due to E. coli, Klebsiella pneumoniae, and Proteusmirabilis. Antimicrobial Susceptibility (test code = Antimicrobia l Susceptibility) See Comment S = Susceptible; I = Intermediate; R = Resistant P = Positive; N = Negative MICS are expressed in micrograms per mL Antibiotic RSLT#1 RSLT#2 RSLT#3 RSLT#4Amoxicillin/Clavulanic Acid SAmpicillin RCefepime SCeftriaxone SCefuroxime SCiprofloxacin SErtapenem SGentamicin SImipenem SLevofloxacin SMeropenem SNitrofurantoin SPipera cillin/Tazobactam STetracycline STobramycin STrimethoprim/Sulfa S [facility][] GC/CT by Amp Det (APTIMA)2018-07-22 18:03:01 * Test Item Value Reference Range Interpretation Comments Source APTIMA (test code = Source APTIMA) Urine N gonorrhea by Amp Det (APTIMA) (test code = 42619-1) Negative Negative The APTIMA assay is a target amplification nucleic acid probe test utilizingtarget capture for the qualitative detection and differentiation of ribosomalRNA from Neisseria gonorrhoeae to aid in the diagnosis of disease fromsymptomatic and asymptomatic individuals using the PANTHER System.This assay utilizes FDA cleared IVD reagents. Performance characteristics havebeen verified by the [facility] within [facility].The [facility] is authorized under the Clinical LaboratoryImprovement Amendments of 1988 (CLIA-88) to perform high complexity testing. C trachomatis by Amp Det (APTIMA) (test code = 28069-7) Negative Negative The APTIMA assay is a target amplification nucleic acid probe test utilizingtarget capture for the qualitative detection and differentiation of ribosomalRNA from Chlamydia trachomatis to aid in the diagnosis of disease fromsymptomatic and asymptomatic individuals using the PANTHER System.This assay utilizes FDA cleared IVD reagents. Performance characteristics havebeen verified by the [facility] within [facility].The [facility] is authorized under the Clinical LaboratoryImprovement Amendments of 1988 (CLIA-88) to perform high complexity testing. [facility][H] Trich vaginalis [id number] 18:03:01* Test Item Value Reference Range Interpretation Comments Trich vaginalis RNA (test code = Trich vaginalis RNA) Negative Negative [facility] [facility], [place] [id number] Analia WARD Ph:[phone] [facility] PhysiciansGlucose (Point of Care In Office)2018-07-22 16:11:00* Test Item Value Reference Range Interpretation Comments Glucose POC Lifescan (test code = Glucose POC Lifescan) 368 [facility][O] Hemoglobin A1c (in office)2018-07-22 16:10:00 * Test Item Value Reference Range Interpretation Comments HEMOGLOBIN A1c; Above High Threshold (test code = 4548-4) 11.3 [facility][O] Urine Test (in office)2018-07-22 15:06:00* Test Item Value Reference Range Interpretation Comments Test, Urine (test code = 2106-3) NEGATIVE [facility][O] Urine Dipstick (In Office)2018-07-22 15:02:00 * Test Item Value Reference Range Interpretation Comments Glucose (test code = Glucose) 500 LEUKOCYTES (test code = LEUKOCYTES) NEGATIVE NITRITE (test code = 08295-8) NEGATIVE UROBILINOGEN (test code = 06075-3) 0.2 PROTEIN (test code = 18724-0) NEGATIVE pH (test code = pH) 5.5 URINE BLOOD (test code = 40410-0) NEGATIVE SPECIFIC GRAVITY (test code = 2965-2) 1.015 KETONES (test code = 27849-3) NEGATIVE BILIRUBIN (test code = 17657-6) NEGATIVE COLOR URINE (test code = 5778-6) YELLOW APPEARANCE (test code = 5767-9) CLEAR [facility] PhysiciansCHEM [id number] 21:47:002.84[facility] [id number] 21:47:0018.4[facility] [id number] 16:59:53* Test Item Value Reference Range Interpretation Comments UA pH (test code = UA pH) 5.5 1 5.0-8.0 [facility] [id number] 16:59:53Negative *NA*(04/17/16 11:59 AM)[facility] [id number] 16:59:53* Test Item Value Reference Range Interpretation Comments UA Spec Grav (test code = UA Spec Grav) 1.020 1 [facility] [id number] 16:59:53Negative (04/17/16 11:59 AM) [facility] [id number] 16:59:53Slight Cloudy (04/17/16 11:59 AM)[facility] [id number] 16:59:53Yellow *NA*(04/17/16 11:59 AM)[facility] [id number] 16:59:53Small *ABN*(04/17/16 11:59 AM)[facility] [id number] 16:59:53Negative (04/17/16 11:59 AM) [facility] [id number] 16:59:53Negative *NA*(04/17/16 11:59 AM)[facility] [id number] 16:59:530.2[facility] [id number] 16:59:53Trace *ABN*(04/17/16 11:59 AM)[facility] [id number] 16:59:53Performed (04/17/16 11:59 AM)[facility]annCHEM [id number] 16:29:24871Squqzawf HermannCHEM [id number] 16:29:0048 Memorial QizjcfwQPNCMZMWBDVS8382-86-29 16:29:0015.5[facility] HermannELECTROLYTES 2016-04-17 16:29:009.5[facility] IgsdqotNWFJKOZMCHIX8293-32-02 16:29:000.72 [facility] UqklakzPXUPUTJDVVRZ4852-89-62 16:29:51280Rucbqxbp HermannELECTROLYTES 2016-04-17 16:29:004.5[facility] OtzpygcFLKHNSXFFIAK4886-95-34 16:29:98433Shbyxdts QqbpwcmLLTFIRJJKAJZ4140-53-10 16:29:0028Memorial CcubweiAPJRDZNZKGCJ0756-62-71 16:29:0011[facility] MjamhuaJZYUWFYQDRHU8000-34-35 16:29:02977Zglvvizo [facility] SPECIAL ZGLZYGZYV1273-94-98 16:29:0011.4[facility] UjzxokuLLOGJBEKME2361-05-78 16:29:00<0.4[facility]
--- OUTSIDE RECORDS SUMMARY | 2020-06-27 18:00 | XMS REPORT | Summary of Care ---
Author Author AKASH Champion R.N. Organization Unknown Address Unknown Phone Unavailable Care Team Providers Care Hosting Engineer Name Role Phone CRIS Olivas, JOVITA Unavailable Unavailable JOVANA Garsia, KAMILAH Unavailable Unavailable Akira Hanna, Timothy Unavailable Unavailable TRISTA Olivas, AYANNA Unavailable Unavailable ROMA WARD FL, MALU FOSS Unavailable Unavailable ROMA Olivas, MALU Unavailable Unavailable Cris WARD, Jovita Unavailable Unavailable Unavailable [...] [facility] when ill [facility] * Quantity: 2 [...] BEFORE EACH MEAL, + 2 UNITS TO CO LOLLY PEN NEEDLE. Up to 60 units [...] P.A., KAMILAH * Start : 01-Feb-2020 Active Allergies and Adverse Reactions Name Dates [...] Immunization Name Dates Details Influenza Lot #: [id number] on: 01-Nov-2014 Gardasil 9 Intramuscular Suspension Lot #: [id number] on: 03-Jun-2018 Gardasil 9 Intramuscular Suspension Lot #: [id number] on: 22-Jul-2018 Fluzone Quadrivalent 0.5 ML Intramuscula r Suspension Lot #: [id number] on: 09-Sep-2018 Gardasil 9 Intramuscular Suspension Pref illed Syringe Lot #: [id number] on: 21-Nov-2018 Family History Name Dates Details No pertinent family history (V49.89, Z78 .9) Status: Active Name Dates Details No pertinent family history (V49.89, Z78 .9) Status: Active Social History Name Dates Details - Status: Name Dates Details Never smoked tobacco (finding) Vital Signs Date Test Result Details No Known Vitals to report Results Date Description Value Details Results not [...] Problem not documented On: 22-Jul-2018 13:00 Appointment; [facility] COUNSELING Encounter Diagnosis: Problem not documented On: [...]
--- OUTSIDE RECORDS SUMMARY | 2020-06-27 18:00 | XMS REPORT | Continuity of Care Document ---
Author Author [facility] [employer] Organization [employer] Address Unknown Phone Unavailable Care Team Providers Care Building Pressure Washer Name Role Phone [email or web address] Unavailable Un available Problems Problem Status Onset Date Classification Date Reported Comments Source Type 2 diabetes mellitus without complications 08/28/2018 03/10/2019 [facility] R31.9 - HEMATURIA, UNSPECIFIED R10.9 - U Active 08/21/2018 [facility] [employer] BLOOD GLUCOSE LEVEL HIGH Active 04/17/2016 [facility] Unspecified abdominal pain 03/10/2019 [facility] Hematuria, unspecified 03/10/2019 [facility] Fever, unspecified 03/10/2019 [facility] Other specified disorders of kidney and ureter 03/10/2019 [facility] Cyst of kidney, acquired 03/10/2019 [facility] Diabetes mellitus (disorder) R esolved Problem [facility], O P[facility] DIABETES DUE TO UNDRL COND W DIABETIC CH Active [facility] Medications Medication Details Route Status Patient Instructions Ordering Provider Order Date Source Insulin, Aspart, Human Notes: Roll in palms of hands gently; Do not shake vigorously. (Same as: NovoLOG) "single patient use only" WASTE: F/P - Black; E - Municipal Trash Bin Stable for 28 days at room temperature. Expires in days from Date No Longer Active 04/20/2016 [facility] Insulin, Aspart, Human Notes: Roll in palms of hands gently; Do not shake vigorously. (Same as: NovoLOG) "single patient use only" WASTE: F/P - Black; E - Municipal Trash Bin Stable for 28 days at room temperature. Expires in days from Date Inactive 04/19/2016 [facility] Insulin, Aspart, Human Notes: Roll in palms of hands gently; Do not shake vigorously. (Same as: NovoLOG) "single patient use only" WASTE: F/P - Black; E - Municipal Trash Bin Stable for 28 days at room temperature. Expires in days from Date Inactive 04/19/2016 [facility] Insulin Glargine Notes: Same a s Lantus Solostar PEN Do not hold insulin without contacting prescriber "single patient use only" WASTE: F/P - Black; E - Municipal Trash Bin Stable for 28 days at room temperature. Expires in days from Date No Longer Active 04/19/2016 [facility] insulin glargine 100 units/mL subcutaneous solution 34 unit, SUB-Q, Bedtime, 0 Refill(s) Active 04/18/2016 [facility] nter Insulin, Aspart, Human 1-8unit , SUB-Q, TID-Meals, PRN Blood Glucose Results, 0 Refill(s) Active 04/18/2016 [facility] nter Insulin Glargine Notes: Same a s Lantus Solostar PEN Do not hold insulin without contacting prescriber "single patient use only" WASTE: F/P - Black; E - Municipal Trash Bin Stable for 28 days at room temperature. Expires in days from Date Inactive 04/18/2016 [facility] nter Insulin Glargine Notes: Same a s Lantus Solostar PEN Do not hold insulin without contacting prescriber "single patient use only" WASTE: F/P - Black; E - Municipal Trash Bin Stable for 28 days at room temperature. Expires in days from Date Inactive 04/17/2016 [facility] nter Insulin, Aspart, Human Notes: Roll in palms of hands gently; Do not shake vigorously. (Same as: NovoLOG) "single patient use only" WASTE: F/P - Black; E - Municipal Trash Bin Stable for 28 days at room temperature. Expires in days from Date No Longer Active 04/17/2016 [facility] sucrose 0.2 mL, Route: PO, Pa g Form: LIQ, Dosing Weight 78.5, kg, PRN, PRN Procedure, Start date: 04/17/16 14:40:00 CDT, Duration: 3 doses or times, Stop date: Limited # of times Inactive 04/17/2016 [facility] nter pentafluoropropane-tetrafluoroethane topical Notes: (Same as: Pain Ease Medium Stream) WASTE: Aerosol - Return to Pharmacy No Longer Active 04/17/2016 [facility] Insulin, Aspart, Human Notes: Roll in palms of hands gently; Do not shake vigorously. (Same as: NovoLOG) "single patient use only" WASTE: F/P - Black; E - Municipal Trash Bin Stable for 28 days at room temperature. Expires in days from Date No Longer Active 04/17/2016 [facility] Dextrose 50% Syringe 25 gm, 50 mL, Route: IVP, Drug Form: INJ, Dosing Weight 78.5, kg, PRN, PRN Blood Glucose Results, Start date: 04/17/16 14:36:00 CDT, Duration: 30 day, Stop date: 05/17/16 14:35:00 CDT No Longer Active 04/17/2016 [facility] normal saline 0.9% IV 1,000 mL 1,000 mL, Rate: 100 ml/hr, Infuse over: 10 hr, Route: IV, Dosing Weight 78.5 kg, Total Volume: 1,000, Priority: STAT, Start date: 04/17/16 10:59:00 CDT, Duration: 1 doses or times, Stop date: 04/17/16 20:58:00 CDT Inactive 04/17/2016 [facility] nter Augmentin 400-57 MG/5ML SUSR (Active) Active [facility] Allergies, Adverse Reactions, Alerts Substance Category Reaction Severity Reaction type Status Date Reported Comments Source Food Shellfish Assertion Drug allergy Active [facility] No Known Drug Allergies drug a llergy drug aller gy Active [facility] Immunizations No Data Provided for This Section Results Order Name Results Value Reference Range Date Interpretation Comments Source CHEM PANEL C-Peptide 2.84 0.48 - 5.05 04/17/2016 [facility] ENDOCRINOLOGY Insulin Lvl 18.4 04/17/2016 [facility] URINE AND STOOL UA pH 5.5 5.0 - 8.0 04/17/2016 [facility] URINE AND STOOL UA Ketones Negative *NA* (04/17/16 11:59 AM) Negative 04/17/2016 [facility] URINE AND STOOL UA Glucose >=1000 mg/dL Negative mg/dL 04/17/2016 [facility] URINE AND STOOL UA Spec Grav 1.020 <=1.030 04/17/2016 [facility] URINE AND STOOL UA Protein Negative (04/17/16 11:59 AM) Negative 04/17/2016 [facility] URINE AND STOOL UA Turbidity Slight Cloudy (04/17/16 11:59 AM) Clear 04/17/2016 [facility] URINE AND STOOL UA Color Yellow *NA* (04/17/16 11:59 AM) Yellow 04/17/2016 [facility] URINE AND STOOL UA Leuk Est Small *ABN* (04/17/16 11:59 AM) Negative 04/17/2016 [facility] URINE AND STOOL UA Nitrite Negative (04/17/16 11:59 AM) Negative 04/17/2016 [facility] URINE AND STOOL UA Bili Negative *NA* (04/17/16 11:59 AM) Negative 04/17/2016 [facility] URINE AND STOOL UA Urobilinogen 0.2 0.1 - 1.0 04/17/2016 [facility] URINE AND STOOL UA Blood Trace *ABN* (04/17/16 11:59 AM) Negative 04/17/2016 [facility] URINE AND STOOL Micro? Performed (04/17/16 11:59 AM) 04/17/2016 [facility] URINE AND STOOL UA RBC 3-5 /HPF 0 - 2 04/17/2016 [facility] URINE AND STOOL UA Bacteria Few /HPF None Seen /HPF 04/17/2016 [facility] URINE AND STOOL UA Sq Epi Moderate /LPF Few /LPF 04/17/2016 [facility] URINE AND STOOL UA WBC 11-20 /HPF None Seen /HPF 04/17/2016 [facility] CHEM PANEL Lipase Lvl 127 73 - 393 04/17/2016 [facility] CHEM PANEL Amylase Lvl 48 25 - 115 04/17/2016 [facility] ELECTROLYTES AGAP 15.5 10.0 - 20.0 04/17/2016 [facility] ELECTROLYTES eGFR See Comment 04/17/2016 Result Comment: No height is recorded fo r this patient; estimated GFR cannot be calculated. [facility] ELECTROLYTES Calcium Lvl 9.5 8.5 - 10.5 04/17/2016 [facility] ELECTROLYTES Creatinine Lvl 0.7 2 0.50 - 1.40 04/17/2016 [facility] ELECTROLYTES Sodium Lvl 140 135 - 145 04/17/2016 [facility] ELECTROLYTES Potassium Lvl 4.5 3.5 - 5.1 04/17/2016 [facility] ELECTROLYTES Chloride Lvl 101 95 - 109 04/17/2016 [facility] ELECTROLYTES CO2 28 24 - 32 04/17/2016 [facility] ELECTROLYTES BUN 11 7 - 22 04/17/2016 [facility] ELECTROLYTES Glucose Lvl 378 70 - 99 04/17/2016 [facility] IMMUNOLOGY Islet Cell Ab NEGAT STELLA NEGATIVE 04/17/2016 Result Comment:
This test was jak gill and its analytical
performance characteristics have been determined
by [facility]. It has not been cleared or approved by
the U.S. Food and Drug Administration. The FDA has
determined that such clearance or approval is not
necessary. This assay has been validated pursuant
to the CLIA regulations and is used for clinical
purposes.
Test Performed at:
[facility]
[address] [place] [address]
[place] [id number] Alesha Kennedy MD, PhD [facility] SPECIAL CHEMISTRY Hgb A1C 11.4 <=5.6 % 04/17/2016 [facility] TOXICOLOGY Insulin Ab <0.4 <0.4 unit/mL 04/17/2016 Result Comment: Test Performed at:
[facility]
[address] [place] [address]
[place] [id number] Alesha Kennedy MD, PhD [facility] Pathology Reports No Data Provided for This Section Diagnostic Reports Report Value Date Source Abdomen/Pelvis w/wo IV contrast CT EXAM: CT ABDOMEN AND PELVIS WITH CONTRAST DATE: 08/21/2018 at 3:50 PM CDT INDICATION: - R31.9 Hematuria, unspecified COMPARISON: None. TECHNIQUE: Volumetric CT of the abdomen and pelvis is acquired with IV contrast. Axial, coronal and sagittal images are provided. Postcontrast phases: Venous. IV contrast: . Oral contrast: None. DLP: 2928.0 mGy-cm. FINDINGS: Lines, tubes and hardware: None. Lower thorax: Clear. Liver: Normal. Biliary tree: No intra- or extrahepatic biliary ductal dilation. Gallbladder: Normal. No CT evidence of gallstones. Pancreas: Normal. Spleen: Normal. Adrenals: Normal. Kidneys and ureters: No hydronephrosis. No kidney or ureteral stone identified. There is diffuse mild thickening and dilation of the left ureter. There is mild periureteral stranding on the left side. There is urothelial enhancement of the left pelvis and ureter. Bladder: Normal. Reproductive organs: Uterus and adnexa are unremarkable. Gastrointestinal tract: Normal caliber. Appendix: Normal. Peritoneum, mesentery and retroperitoneum: No free air, ascites or loculated fluid. Lymph nodes: Normal. Vasculature: Normal. Bones: No acute abnormality. Soft tissues: Normal. IMPRESSION: 1. Diffuse mild urothelial thickening, very minimal dilation, and periureteral fat stranding associated with the left ureter and renal pelvis may be sequelae of recently passed stone. No kidney or ureteral stone identified. No calculus identified in the transition point at the ureterovesical junction. 2. Large simple cyst in the right kidne y. RECOMMENDATIONS: None. 08/21/2018 [facility] Consultation Notes No Data Provided for This Section Discharge Summaries No Data Provided for This Section History and Physicals No Data Provided for This Section Vital Signs Vital Sign Value Date Comments Source Height 151.3 cm 04/19/2016 [facility] BMI Calculated 33.99 04/19/2016 [facility] Weight 77.8 04/19/2016 [facility] Systolic (mm Hg) 115 04/19/2016 [facility] Diastolic (mm Hg) 76 04/19/2016 [facility] Respitory Rate 19 04/19/2016 [facility] Heart Rate 75 04/19/2016 [facility] Temperature Oral (F) 98 F 04/19/2016 [facility] Heart Rate 71 04/19/2016 [facility] Temperature Oral (F) 98.1 F 04/19/2016 [facility] Systolic (mm Hg) 111 04/19/2016 [facility] Diastolic (mm Hg) 74 04/19/2016 [facility] Respitory Rate 18 04/19/2016 [facility] Heart Rate 76 04/19/2016 [facility] Temperature Oral (F) 97.6 F 04/19/2016 [facility] Systolic (mm Hg) 109 04/19/2016 [facility] Diastolic (mm Hg) 68 04/19/2016 [facility] Respitory Rate 20 04/19/2016 [facility] Weight 77.8 04/17/2016 [facility] Weight 78.5 04/17/2016 [facility] Encounters Location Location Details Encounter Type Encounter Number Reason For Visit Attending Provider ADM Date DC Date Status Source AUDIT [id number] 01/18/2014 01/18/2014 [facility] OBS Observation Patient [id number] Will Shin 04/17/2016 04/19/2016 [facility] [id number] Jake Varun 08/21/2018 08/22/2018 [facility] Procedures No Data Provided for This Section Assessment and Plan Assessment and Plan Date Source Extracted from:Title: Team D Discharge S reza Author: Edgar Newby MD Date: 04/19/16 TEAM D DISCHARGE SUMMARY PATIENTS NAME: Akash Winston ADMISSION DATE: 04/17/2016 DISCHARGE [...] time was 8.1. Was then referred to [facility] endocrine but mom was unable to get appointment for several months. 1 wk ago patient had epis ode of R. hand swelling on dorsum after "bug bite". Went to PCP and was started on PO bactrim x 10d for possible "staph infection". At this visit mom requested repeat A1C check as had never been reevaluated. At this time was 12.4. Patient then referred to [place] [facility] and seen by Dr. Pereira. In clinic today, repeat A1C 11.7 and glucose in the 360s. Patient was then sent to [facility] ED. Prior to admission patient reports [...] - 99) Gluc POC Comment 1 Notified MEGHAN 04/19/2016 02:04 Glucose POC 211 * H (Ref. Range 70 - 99) Gluc POC Comment 1 Notified MEGHAN 04/19/2016 07:48 Glucose POC 168 * H (Ref. Range 70 - 99) 04/19/2016 12:01 Glucose POC 153 * H (Ref. Range 70 - 99) Gluc POC Comment 1 Notified RN/ IMAGING: None MICROBIOLOGY: None ER COURSE: On [...] insulin regimen of Lantus 34 U with bedti me, Novolog 11 U with each meal, and [...] with Dr. Pereira in End ocrinology Extracted from:Title: Medical Student Progress Note Author: Deena Castellanos Date: 04/19/16 Progress Note - Daily [facility] Completed: , APR 19, 2016, 14:18 by Deena Castellanos RM: 1025 - 01, [facility] AKASH WINSTON 15y (: 2000) F Attending: Will Shin MD Service: Pediatrics Service Reason for Admission: BLOOD GLUCOSE LEVEL HIGH Working DRG: Other kidney and urinary tract diagnoses w/o CC/ALF Code status: Full Code [Ordered] Current diet: Diabetic diet Isolation: None Documented Allergies: Food Shellfish SUBJECTIVE Pt is doing well today and has no complaints. She says she slept well last night and has not been needing to urinate or drink liquids as much as she had to previously. dairy cattle farm worker visited her and mother yesterday. Pt says [...] all extremities. 24hr Labs 04/19 1201 Glucose POC 153 H 04/19 0748 Glucose POC 168 H 04/19 0204 Glucose POC 211 H 04/18 2121 Glucose POC 275 H 04/18 1804 Glucose POC 168 H Line still necessary (Yes/No): No Vitals Tmp(F) Pulse BP RR SpO2 FIO2 04/19 11:00 98 75 115/76 19 --- --- 04/19 08:00 98.1 71 111/74 1 8 --- --- 04/19 04:04 97.6 76 109/68 2 0 --- --- 04/19 00:02 98.1 74 96/60 20 --- --- 04/18 20:00 98.3 84 108/71 2 0 --- --- 24 Hr Tmax: 98.3F (36.83c) at 04/18 20:0 0 Vital Signs are the last 5 in the past 48 hours. Date Wt(kg) Wt(lb) Ht(cm) Ht(in) Method 04/19 77.80 171.16 151.30 59.57 Measured 04/17 (initial) 78.50 172.70 Measured 04/19 151.30 59.57 Measured I&O Record In Out Bal 04/19 24hr Tot 240 400 -160 04/18 24hr Tot 720 500 220 Medications (7) Active [...] Time Meds: None Continuous Infusions: None ASSESSMENT and PLAN Akash Winston is a 15 yo female with PMH of hyperglycemia who presented 04/17 to [place] [facility] with glucose >300 and HbA1c [...] Yes, pending endo recs. TEACHING ATTESTATION Extracted from:Title: Pedi Endocrinology F/U Note Author: Alfredo Cooper [...] 8.9%. She was referred to Endocrinology at [facility] at that time but they were unable to make an appointment for her to be followed up. Two weeks prior to admission she was seen by PCP for right hand swelling concerning for cellulitis +/- abscess and placed on antibiotics. At this time a repeat Hgb A1C was sent and came back at 12.4%. She was then referred to [place] [facility] where she presented for inital evaluation [...] no heat or cold intolerance Physical Examination: Vitals Tmp(F) Tmp(C) Ttype BP MAP Pulse RR SpO2 FIO2 ETCO2 04/19 08:00 98.1 36.72 oral 111/74 86 71 18 --- --- --- 04/19 04:04 97.6 36.44 oral 109/68 82 76 20 --- --- --- 04/19 00:02 98.1 36.72 oral 96/60 72 74 20 --- --- --- 04/18 20:00 98.3 36.83 oral 108/71 84 84 20 --- --- --- 04/18 12:22 98.0 36.67 oral 118/78 91 79 20 --- --- --- 24 Hr Tmax: 98.3F (36.83c) at 04/18 20:0 0 Vital Signs are the last 5 in the past 48 hours. 24 Hr Tmin: 97.6F (36.44c) at 04/19 04: 04 Weights are the last 5 in 60 days, plus initial. Date Wt(kg) Wt(lb) Ht(cm) Ht(in) Method BMI BSA 04/17 (initial) 78.50 172.70 Measured GEN: No acute distress, laying in bed [...] or lesions noted Labs: 04/19 0204 Glucose POC 211 H 04/18 2121 Glucose POC 275 H 04/18 1804 Glucose POC 168 H 04/18 1153 Glucose POC 255 H 04/18 0745 Glucose POC 216 H 04/18 0206 Glucose POC 178 H 04/17 1647 C-Peptide 2.84 Insulin Lvl 18.4 Assessment: Akash is a 15 year old [...] - Novolo U breakfast, 11 U Lunch, 12U Dinner - Sliding scale: 1 Unit for every 30 mg/dL above 150 mg/dL - Diet: 90 g [...] to be the preferred insulin and our Corporate Logistics Manager was going to come today to [...] day for the Diabetes instructions. Once our patient services coordinator irons out which bolus insulin is preferred, i.e. humalog and sample given, ok to go home. Continue same diet and sliding scale and have asked family to call us early next week to discuss [facility] records and adjust insulins as needed. Ok to page us on our emergency pager if problems with blood sugar too high or low or ketones positive. Extracted from:Title: Team D History and Physical Author: Elida Souza MD Date: 04/17/16 Team D History and Physical: PATIENT NAME: Akash Winston DATE OF [...] time was 8.1. Was then referred to [facility] endocrine but mom was unable to get appointment for several months. 1 wk ago patient had episode of R. hand swelling on dorsum after "bug bite". Went to PCP and was started on PO bactrim x 10d for possible "staph infection". At this visit mom requested repeat A1C check as had never been reevaluated. At this time was 12.4. Patient then referred to [place] [facility] and seen by Dr. Pereira. In clinic today, repeat A1C 11.7 and glucose in the 360s. Patient was then sent to [facility] ED. Prior to admission patient reports [...] at home with parents, 2 sisters, brother inlaw, and 1yo neice. No household pets. No smoking in the house. No recent travel. +sick contacts brother in law with URI symptoms. PCP: Dr. Leighann Miller with [facility] phone: [phone] REVIEW OF SYSTEMS: GENERAL - no behavioral [...] +polydipsia, +polyuria, no polyphagia. Vitals and Temp: Vitals Tmp(F) Pulse BP RR SpO2 FIO2 04/17 15:27 98.1 81 112/64 2 1 --- --- 04/17 13:00 98.3 76 107/72 2 0 --- --- 04/17 12:53 98.1 75 113/75 2 0 99 --- 04/17 10:41 98.9 88 117/75 2 0 97 --- 24 Hr Tmax: 98.9F (37.17c) at 04/17 10:4 1 Vital Signs are the last 5 in the past 48 hours. Date Wt(kg) Wt(lb) Ht(cm) Ht(in) Method 04/17 (initial) 78.50 172.70 Measured I&O Record In Out Bal 04/17 24hr Tot 300 0 300 04/16 24hr Tot 0 0 0 Lines, Tubes, and [...] bite LABS: 36hr Labs 04/17 1658 Glucose POC 238 H 04/17 1159 UA Color Yellow UA Turbidity Slight Cloudy UA Spec Grav 1.020 UA pH 5.5 UA Protein Negative UA Glucose >=1000 UA Ketones Negative UA Bili Negative UA Blood Trace UA Urobilinogen 0.2 UA Nitrite Negative UA Leuk Est Small UA RBC 3-5 UA WBC 11-20 UA Bacteria Few UA Sq Epi Moderate Micro? Performed 04/17 1129 Temp Allen 37.0 pH Allen 7.38 pCO2 Allen 46 pO2 Allen 33 HCO3 Allen 27 H BE Allen 2 O2 Sat Allen 62.1 Glucose Lvl 378 H BUN 11 Creatinine Lvl 0.72 Sodium Lvl 140 Potassium Lvl 4.5 Chloride Lvl 101 CO2 28 AGAP 15.5 Calcium Lvl 9.5 eGFR See Comment Amylase Lvl 48 Lipase Lvl 127 Hgb A1C 11.4 H 04/17 1122 Glucose POC 344 H MICROBIOLOGY: none. IMAGING/DIAGNOSTICS: none. ASSESSMENT: Akash [...] Sliding scale: 1 Unit for every 30 mg/dL above 150 mg/dL - Diet: 90 g [...] rounds. Elida Souza M.D. PEDIATRICS, PGY1 MSO#: [id number] Pedi Attending Note Patient was seen and [...] diabetic education. Mom at bedside and updated. 04/19/2016 [facility] Plan of Care No Data Provided for This Section Social History Social History Date Source Social History TypeResponse Smoking Status Never smoker; Exposure to Tobacco Smoke None; Cigarette Smoking Last 365 Days No; Reg Smoking Cessation Counseling No entered on: 04/17/16 04/17/2016 [facility] Social History TypeResponse Smoking Status Never smoker; Exposure to Tobacco Smoke None; Cigarette Smoking Last 365 Days No; Reg Smoking Cessation Counseling No 04/17/2016 [facility] Never A Smoker (Active) Never Drank Alcohol (Active) 01/18/2014 [facility] Family History Value Date S ource Family history of Hypertension (V17.49); (Active) Family history of Type 2 Diabetes Mellitus (Active) 01/18/2014 [facility] Advance Directives Order Name Results Value Date Source Advance Directives Advance Dir ectives No Advance Directives available. 01/18/2014 [facility] Functional Status No Data Provided for This Section
[2020-06-27 18:08] LABS: BASOPHILS % 0.4 % (0.0-1.0); EOSINOPHILS # (AUTO) 0.1 (0.0-0.4); EOSINOPHILS % 1.2 % (0.0-6.0); HEMATOCRIT 40.5 % (34.2-44.1); HEMOGLOBIN 14.1 g/dL (12.0-16.0); LYMPHOCYTES # (AUTO) 2.9 (1.0-3.2); LYMPHOCYTES % 38.5 % (18.0-39.1); MEAN CORPUSCULAR HEMOGLOBIN 28.1 pg (28-32); MEAN CORPUSCULAR HGB CONC 34.8 g/dL (31-35); MEAN CORPUSCULAR VOLUME 80.8 fL (81-99); MONOCYTES # (AUTO) 0.3 (0.2-0.8); MONOCYTES % 4.5 % (4.4-11.3); NEUTROPHILS % 53.9 % (38.7-80.0); PLATELET COUNT 378 x10e3/uL (140-360); RED BLOOD COUNT 5.01 x10e6/uL (3.6-5.1); RED CELL DISTRIBUTION WIDTH 13.1 % (11.7-14.4)
[2020-06-27 18:11] LABS: BILIRUBIN,URINE NEGATIVE (NEGATIVE); CLARITY,URINE SL CLOUDY (CLEAR); COLOR,URINE YELLOW (YELLOW); KETONES,URINE 1+ (NEGATIVE); LEUKOCYTE ESTERASE ,URINE NEGATIVE (NEGATIVE); NITRITE,URINE POSITIVE (NEGATIVE); PROTEIN,URINE DIPSTICK NEGATIVE (NEGATIVE); URINE UROBILINOGEN 0.2 mg/dL (0.2 - 1)
[2020-06-27 18:23] LABS: BACTERIA,URINE MANY /HPF; EPITHELIAL CELLS,URINE FEW /LPF; RBC,URINE 0-5 /HPF (0-5)
[2020-06-27 18:28] LABS: ALANINE AMINOTRANSFERASE 26 IU/L (0-55); ALBUMIN 4.4 g/dL (3.5-5.0); ALBUMIN/GLOBULIN RATIO 1.3 (0.8-2.0); ALKALINE PHOSPHATASE 88 IU/L (40-150); ANION GAP 17.9 mmol/L (8-16); BLOOD UREA NITROGEN 13 mg/dL (7-26); BUN/CREATININE RATIO 16 (6-25); CALCIUM 9.9 mg/dL (8.4-10.2); CARBON DIOXIDE 21 mmol/L (22-29); CHLORIDE 96 mmol/L (98-107); CREATININE, SERUM 0.83 mg/dL (0.57-1.11); EST GLOMERULAR FILTRATION RATE > 60 ML/MIN (60-); POTASSIUM 3.9 mmol/L (3.5-5.1); SODIUM 131 mmol/L (136-145)
[2020-06-27 18:30] LABS: LIPASE 41 U/L (8-78)
[2020-06-27 18:34] LABS: GLUCOSE 422 mg/dL (74-118)
[2020-06-27 18:36] LABS: HCG,QUANTITATIVE < 1.20 mIU/mL (0-10)
[2020-06-27] MEDS ORDERED: INSULIN REGULAR, HUMAN 100 UNIT/1 ML 3ML VIAL IV ONE (18:45)
--- NOTE | 2020-06-27 18:53 | NUR ---
Pt to CT scan.
--- NOTE | 2020-06-27 18:55 | NUR ---
Nursing report given to Greg GARCIA.
[2020-06-27] MEDS ORDERED: SODIUM CHLORIDE 0.9% 1000ML 1,000 ML IV ONE (19:00)
[2020-06-27] MEDS ORDERED: SODIUM CHLORIDE 0.9% 1000ML 1,000 ML IV SCH (19:00)
--- NOTE | 2020-06-27 19:41 | Diagnostic Imaging Report ---
EXAM: CT Abdomen and Pelvis WITH contrast INDICATION: Right lower quadrant abdominal pain. COMPARISON: None. TECHNIQUE: Abdomen and pelvis were scanned utilizing a multidetector helical scanner from the lung base to the pubic symphysis after administration of IV contrast. Coronal and sagittal reformations were obtained. Routine protocol was performed. Scan was performed when during portal venous phase. IV CONTRAST: 100 mL of Isovue 370 ORAL CONTRAST: None COMPLICATIONS: None RADIATION DOSE: Total DLP: 762.34 mGy*cm Estimated effective dose: (DLP x 0.015 x size factor) mSv CTDIvol has been reviewed. It is below the limits set by the Radiation Protocol Committee (RPC). Dose modulation, iterative reconstruction, and/or weight based adjustment of the mA/kV was utilized to reduce the radiation dose to as low as reasonably achievable. FINDINGS: LINES and TUBES: None. LOWER THORAX: Unremarkable HEPATOBILIARY: No focal hepatic lesions. No biliary ductal dilation. GALLBLADDER: No radio-opaque stones or sludge. No wall thickening. SPLEEN: No splenomegaly. PANCREAS: No focal masses or ductal dilatation. ADRENALS: No adrenal nodules KIDNEYS/URETERS: Kidneys enhance symmetrically. No hydronephrosis. There are cysts in the upper pole of the right kidney and midpole of the left kidney. No solid mass. No stones. GI TRACT: No abnormal distention, wall thickening, or evidence of bowel obstruction. The appendix is not seen in isolation, however, there are no secondary signs of appendicitis. PELVIC ORGANS/BLADDER: There are bilateral adnexal cystic structures which measure 3.0 x 1.8 cm on the right and 2.3 x 2.2 cm on the left. LYMPH NODES: There are prominent lymph nodes in the right lower quadrant, none of which meet criteria for pathologic enlargement. No evidence of lymphadenopathy. VESSELS: Unremarkable. PERITONEUM / RETROPERITONEUM: No free air or fluid. BONES: Unremarkable. SOFT TISSUES: Unremarkable. IMPRESSION: 1. Prominent mesenteric lymph nodes in the right lower quadrant which can be seen with mesenteric adenitis. 2. Bilateral adnexal cystic structures which may represent ovarian cysts. However, given history of acute lower abdominal pain, a pelvic ultrasound is recommended for further evaluation of the ovaries. Signed by: Nandini Cabrera MD on 06/27/2020 7:38 PM
[2020-06-27] MEDS ORDERED: KETOROLAC TROMETHAMINE 30 MG/ML VIAL IV STA (20:23)
[2020-06-27 20:45] LABS: ANION GAP 14.6 mmol/L (8-16); BLOOD UREA NITROGEN 11 mg/dL (7-26); BUN/CREATININE RATIO 15 (6-25); CALCIUM 8.4 mg/dL (8.4-10.2); CARBON DIOXIDE 21 mmol/L (22-29); CHLORIDE 103 mmol/L (98-107); CREATININE, SERUM 0.74 mg/dL (0.57-1.11); EST GLOMERULAR FILTRATION RATE > 60 ML/MIN (60-); GLUCOSE 300 mg/dL (74-118); POTASSIUM 3.6 mmol/L (3.5-5.1); SODIUM 135 mmol/L (136-145)
[2020-06-27] MEDS ORDERED: ZOFRAN4 MG SL (20:52)
[2020-06-27] MEDS ORDERED: BENTYL10 MG/1 ML PO (20:52)
[2020-06-27 21:00] VITALS: BP 117/71
[2020-06-27] MEDS ORDERED: KEFLEX500 MG PO (21:01)
== END 2020-06-27 21:10 | disposition home or self-care (01) ==
LOC: ER 17:58
DX: R10.30 Lower abdominal pain, unspecified (principal); N39.0 Urinary tract infection, site not specified; R50.9 Fever, unspecified
CPT/HCPCS: 36415; 74177; 80048; 80053; 81001; 83690; 84702; 85025; 99284; J1885; J2405; J3010; J7030; J7050; Q9967

== ENCOUNTER 2021-02-24 23:12 | Inpatient (IN) | payer BC, OTHER ==
[~2021-02-24] VITALS: Ht 149.9 cm; Wt 84.4 kg
[~2021-02-24 23:12] MED LIST: BENTYL10 MG/1 ML PO; KEFLEX500 MG PO; ZOFRAN4 MG SL
[2021-02-24] MEDS ORDERED: ONDANSETRON HCL INJ 2MG/ML 2ML 2 MG/ML VIAL IV STA (23:47)
[2021-02-24] MEDS ORDERED: ACETAMINOPHEN 325 MG TAB ONE (23:54)
[2021-02-24] MEDS ORDERED: ONDANSETRON HCL INJ 2MG/ML 2ML 2 MG/ML VIAL ONE (23:55)
[2021-02-24] MEDS ORDERED: SODIUM CHLORIDE 0.9% 1000ML 1,000 ML ONE (23:55)
[2021-02-24 23:58] LABS: BASOPHILS % 0.3 % (0.0-1.0); EOSINOPHILS % 0.3 % (0.0-6.0); HEMATOCRIT 42.4 % (34.2-44.1); LYMPHOCYTES # (AUTO) 0.6 (1.0-3.2); LYMPHOCYTES % 8.2 % (18.0-39.1); MEAN CORPUSCULAR HEMOGLOBIN 29.9 pg (28-32); MEAN CORPUSCULAR HGB CONC 35.4 g/dL (31-35); MEAN CORPUSCULAR VOLUME 84.5 fL (81-99); MONOCYTES # (AUTO) 0.2 (0.2-0.8); MONOCYTES % 2.8 % (4.4-11.3); PLATELET COUNT 299 x10e3/uL (140-360); RED BLOOD COUNT 5.02 x10e6/uL (3.6-5.1); RED CELL DISTRIBUTION WIDTH 12.8 % (11.7-14.4)
[2021-02-25] VITALS (12 sets, daily range): BP systolic 89–138; BP diastolic 50–102
[2021-02-25] LABS: CLARITY,URINE SL CLOUDY (CLEAR); COLOR,URINE YELLOW (YELLOW)
[2021-02-25] MEDS ORDERED: ACETAMINOPHEN 325 MG TAB PO ONE
[2021-02-25 00:01] LABS: KETONES,URINE 2+ (NEGATIVE); LEUKOCYTE ESTERASE ,URINE NEGATIVE (NEGATIVE); NITRITE,URINE NEGATIVE (NEGATIVE); PROTEIN,URINE DIPSTICK NEGATIVE (NEGATIVE); URINE UROBILINOGEN 0.2 mg/dL (0.2 - 1)
[2021-02-25 00:04] LABS: BACTERIA,URINE FEW /HPF; EPITHELIAL CELLS,URINE MODERATE /LPF; RBC,URINE 0-5 /HPF (0-5); YEAST,URINE FEW
[2021-02-25] MEDS ORDERED: CEFEPIME 1GM/NS 0.9% 50 ML 50 ML IV ONE (00:15)
[2021-02-25 00:17] LABS: ALANINE AMINOTRANSFERASE 21 IU/L (0-55); ALBUMIN 4.3 g/dL (3.5-5.0); ALBUMIN/GLOBULIN RATIO 1.3 (0.8-2.0); ALKALINE PHOSPHATASE 52 IU/L (40-150); ANION GAP 22.5 mmol/L (8-16); BLOOD UREA NITROGEN 13 mg/dL (7-26); BUN/CREATININE RATIO 13 (6-25); CALCIUM 9.1 mg/dL (8.4-10.2); CARBON DIOXIDE 20 mmol/L (22-29); CHLORIDE 98 mmol/L (98-107); EST GLOMERULAR FILTRATION RATE > 60 ML/MIN (60-); POTASSIUM 4.5 mmol/L (3.5-5.1); SODIUM 136 mmol/L (136-145)
[2021-02-25 00:18] LABS: AMYLASE 46 U/L (25-125); GLUCOSE 509 mg/dL (74-118); LIPASE 12 U/L (8-78)
[2021-02-25] MEDS ORDERED: CEFEPIME HCL 1 GM VIAL ONE ×2 (00:18→06:28)
[2021-02-25] MEDS ORDERED: SODIUM CHLORIDE 0.9% 50ML 50 ML ONE ×3 (00:18→06:28)
[2021-02-25] MEDS ORDERED: INSULIN REGULAR, HUMAN 100 UNIT/1 ML 3ML VIAL SQ ONE (00:30)
[2021-02-25] MEDS ORDERED: INSULIN REGULAR, HUMAN 100 UNIT/1 ML 3ML VIAL IV ONE (00:30)
[2021-02-25] MEDS ORDERED: IBUPROFEN 600 MG TAB PO STA (01:19)
[2021-02-25] MEDS ORDERED: IBUPROFEN 600 MG TAB ONE (01:29)
[2021-02-25] MEDS ORDERED: SODIUM CHLORIDE 0.9% 1000ML 1,000 ML IV ONE ×2 (01:30)
[2021-02-25] MEDS ORDERED: SODIUM CHLORIDE 0.9% 500ML 500 ML ONE (01:43)
[2021-02-25] MEDS ORDERED: SODIUM CHLORIDE 0.9% 500ML 500 ML IV ONE (01:45)
[2021-02-25 02:48] LABS: ANION GAP 19.7 mmol/L (8-16); BLOOD UREA NITROGEN 11 mg/dL (7-26); BUN/CREATININE RATIO 15 (6-25); CALCIUM 7.2 mg/dL (8.4-10.2); CARBON DIOXIDE 17 mmol/L (22-29); CHLORIDE 107 mmol/L (98-107); CREATININE, SERUM 0.73 mg/dL (0.57-1.11); EST GLOMERULAR FILTRATION RATE > 60 ML/MIN (60-); GLUCOSE 313 mg/dL (74-118); POTASSIUM 3.7 mmol/L (3.5-5.1); SODIUM 140 mmol/L (136-145)
[2021-02-25] MEDS ORDERED: INSULIN REGULAR, HUMAN 3ML VL 300 UNIT in SODIUM CHLORIDE 0.9% 300 ML IV SCH ×2 (03:00)
[2021-02-25] MEDS ORDERED: POTASSIUM CHLORIDE 20MEQ/100ML 200 ML IV PRN (03:00)
[2021-02-25] MEDS ORDERED: MAGNESIUM SULF 1GRAM/DEXTROSE 100 ML IV PRN (03:00)
[2021-02-25] MEDS ORDERED: IOPAMIDOL 370 MG/ML 200 ML INFUS..BTL INJ ONE (03:10)
[2021-02-25] MEDS ORDERED: ONDANSETRON HCL INJ 2MG/ML 2ML 2 MG/ML VIAL IV PRN ×2 (03:15→10:30)
[2021-02-25] MEDS ORDERED: CEFEPIME 1GM/NS 0.9% 50 ML 50 ML IV SCH ×2 (03:15→12:30)
[2021-02-25] MEDS: SODIUM CHLORIDE 0.9% 1000ML 1,000 ML IV SCH ×5 (03:37→12:11)
[2021-02-25] MEDS: DEXTROSE 5%/0.45% SOD CHL 1,000 ML IV SCH ×2 (06:39→15:53)
[2021-02-25 06:57] LABS: BLOOD UREA NITROGEN 10 mg/dL (7-26); BUN/CREATININE RATIO 16 (6-25); CALCIUM 7.5 mg/dL (8.4-10.2); CARBON DIOXIDE 20 mmol/L (22-29); CHLORIDE 110 mmol/L (98-107); CREATININE, SERUM 0.61 mg/dL (0.57-1.11); EST GLOMERULAR FILTRATION RATE > 60 ML/MIN (60-); GLUCOSE 110 mg/dL (74-118); MAGNESIUM 1.2 MG/DL (1.3-2.1); SODIUM 140 mmol/L (136-145)
[2021-02-25] MEDS ORDERED: VANCOMYCIN 1GM/NS 250 ML 250 ML IV ONE (08:00)
[2021-02-25] MEDS ORDERED: PIPER-TAZ 3.375 GM 50 ML IV ONE ×2 (12:00)
[2021-02-25] MEDS ORDERED: PIPERACILLIN/TAZOBAC 3.375 GM in SODIUM CHLORIDE 0.9% 50ML 50 ML IV SCH (12:30)
[2021-02-25] MEDS ORDERED: CALCIUM GLUCONATE 10% INJ 9.3 MEQ in SODIUM CHLORIDE 0.9% 100 ML 100 ML IV ONE (13:00)
[2021-02-25 13:21] LABS: ANION GAP 14.5 mmol/L (8-16); BLOOD UREA NITROGEN 10 mg/dL (7-26); BUN/CREATININE RATIO 13 (6-25); CALCIUM 7.8 mg/dL (8.4-10.2); CARBON DIOXIDE 20 mmol/L (22-29); CHLORIDE 108 mmol/L (98-107); CREATININE, SERUM 0.78 mg/dL (0.57-1.11); EST GLOMERULAR FILTRATION RATE > 60 ML/MIN (60-); GLUCOSE 275 mg/dL (74-118); MAGNESIUM 1.6 MG/DL (1.3-2.1); POTASSIUM 3.5 mmol/L (3.5-5.1); SODIUM 139 mmol/L (136-145)
[2021-02-25] MEDS: METRONIDAZOLE 500 MG TAB PO SCH ×2 (15:58→23:24)
[2021-02-25] MEDS: ACETAMINOPHEN 325 MG TAB PO PRN (16:45)
[2021-02-25 17:13] LABS: ANION GAP 14.6 mmol/L (8-16); BLOOD UREA NITROGEN 8 mg/dL (7-26); BUN/CREATININE RATIO 11 (6-25); CALCIUM 7.8 mg/dL (8.4-10.2); CARBON DIOXIDE 18 mmol/L (22-29); CHLORIDE 108 mmol/L (98-107); CREATININE, SERUM 0.72 mg/dL (0.57-1.11); EST GLOMERULAR FILTRATION RATE > 60 ML/MIN (60-); GLUCOSE 195 mg/dL (74-118); MAGNESIUM 1.6 MG/DL (1.3-2.1); POTASSIUM 3.6 mmol/L (3.5-5.1); SODIUM 137 mmol/L (136-145)
[2021-02-25] MEDS: ENOXAPARIN SOD INJ 40 MG/0.4 ML SYR SC SCH (17:23)
[2021-02-25] MEDS: INSULIN REGULAR, HUMAN 3ML VL 100 UNIT in SODIUM CHLORIDE 0.9% 100 ML 99 ML IV SCH ×4 (17:28→21:00)
[2021-02-25] MEDS: CIPROFLOXACIN 500 MG TAB PO SCH (17:31)
[2021-02-25] MEDS: POTASSIUM CHL 40 MEQ in DEXTROSE 5%/0.45% SOD CHL 1,000 ML IV SCH (19:00)
[2021-02-25] MEDS ORDERED: INSULIN GLARGINE 100 UNITS/ML VIAL SQ SCH (21:00)
[2021-02-25 21:53] LABS: ANION GAP 12.4 mmol/L (8-16); BLOOD UREA NITROGEN 6 mg/dL (7-26); BUN/CREATININE RATIO 8 (6-25); CARBON DIOXIDE 19 mmol/L (22-29); CHLORIDE 109 mmol/L (98-107); CREATININE, SERUM 0.74 mg/dL (0.57-1.11); EST GLOMERULAR FILTRATION RATE > 60 ML/MIN (60-); GLUCOSE 301 mg/dL (74-118); POTASSIUM 3.4 mmol/L (3.5-5.1); SODIUM 137 mmol/L (136-145)
[2021-02-26] VITALS (12 sets, daily range): BP systolic 120–134; BP diastolic 73–92
[2021-02-26] MEDS ORDERED: DEXTROSE 5%/0.45% SOD CHL 1,000 ML IV ONE (00:22)
[2021-02-26] MEDS: INSULIN REGULAR, HUMAN 3ML VL 100 UNIT in SODIUM CHLORIDE 0.9% 100 ML 99 ML IV SCH ×4 (01:04→05:16)
[2021-02-26] MEDS: ACETAMINOPHEN 325 MG TAB PO PRN (01:20)
[2021-02-26 05:28] LABS: BASOPHILS % 0.3 % (0.0-1.0); HEMATOCRIT 34.7 % (34.2-44.1); HEMOGLOBIN 11.7 g/dL (12.0-16.0); LYMPHOCYTES # (AUTO) 1.6 (1.0-3.2); LYMPHOCYTES % 39.9 % (18.0-39.1); MEAN CORPUSCULAR HEMOGLOBIN 29.1 pg (28-32); MEAN CORPUSCULAR HGB CONC 33.7 g/dL (31-35); MEAN CORPUSCULAR VOLUME 86.3 fL (81-99); MONOCYTES # (AUTO) 0.5 (0.2-0.8); MONOCYTES % 12.3 % (4.4-11.3); NEUTROPHILS # (AUTO) 1.8 (2.1-6.9); PLATELET COUNT 220 x10e3/uL (140-360); RED BLOOD COUNT 4.02 x10e6/uL (3.6-5.1); RED CELL DISTRIBUTION WIDTH 12.8 % (11.7-14.4)
[2021-02-26 06:12] LABS: ALANINE AMINOTRANSFERASE 20 IU/L (0-55); ALBUMIN 3.1 g/dL (3.5-5.0); ALBUMIN/GLOBULIN RATIO 1.3 (0.8-2.0); ALKALINE PHOSPHATASE 39 IU/L (40-150); ANION GAP 10.2 mmol/L (8-16); BLOOD UREA NITROGEN 6 mg/dL (7-26); BUN/CREATININE RATIO 8 (6-25); CALCIUM 7.9 mg/dL (8.4-10.2); CARBON DIOXIDE 18 mmol/L (22-29); CHLORIDE 110 mmol/L (98-107); CREATININE, SERUM 0.71 mg/dL (0.57-1.11); EST GLOMERULAR FILTRATION RATE > 60 ML/MIN (60-); GLUCOSE 245 mg/dL (74-118); POTASSIUM 3.2 mmol/L (3.5-5.1); SODIUM 135 mmol/L (136-145)
[2021-02-26] MEDS: METRONIDAZOLE 500 MG TAB PO SCH (06:29)
[2021-02-26] MEDS: CIPROFLOXACIN 500 MG TAB PO SCH (09:38)
[2021-02-26] MEDS: POTASSIUM CHL 40 MEQ in DEXTROSE 5%/0.45% SOD CHL 1,000 ML IV SCH ×2 (09:50→15:24)
[2021-02-26] MEDS: PIPERACILLIN/TAZOBAC 3.375 GM in SODIUM CHLORIDE 0.9% 50ML 50 ML IV SCH ×2 (13:35→22:03)
[2021-02-26] MEDS ORDERED: INSULIN LISPRO 100 UNIT/1 ML 3ML VIAL SQ ONE (15:45)
[2021-02-26] MEDS: INSULIN LISPRO 100 UNIT/1 ML 3ML VIAL SQ SCH ×3 (17:26→21:45)
[2021-02-26] MEDS: ENOXAPARIN SOD INJ 40 MG/0.4 ML SYR SC SCH (17:52)
[2021-02-26] MEDS ORDERED: INSULIN GLARGINE 100 UNITS/ML VIAL SQ SCH (21:00)
[2021-02-27] VITALS (10 sets, daily range): BP systolic 121–147; BP diastolic 80–96
[2021-02-27] MEDS: POTASSIUM CHL 40 MEQ in DEXTROSE 5%/0.45% SOD CHL 1,000 ML IV SCH ×3 (01:36→07:28)
[2021-02-27 05:46] LABS: BASOPHILS % 0.2 % (0.0-1.0); EOSINOPHILS # (AUTO) 0.1 (0.0-0.4); EOSINOPHILS % 2.1 % (0.0-6.0); HEMATOCRIT 33.7 % (34.2-44.1); HEMOGLOBIN 11.4 g/dL (12.0-16.0); LYMPHOCYTES # (AUTO) 1.9 (1.0-3.2); LYMPHOCYTES % 39.6 % (18.0-39.1); MEAN CORPUSCULAR HEMOGLOBIN 29.2 pg (28-32); MEAN CORPUSCULAR HGB CONC 33.8 g/dL (31-35); MEAN CORPUSCULAR VOLUME 86.2 fL (81-99); MONOCYTES # (AUTO) 0.5 (0.2-0.8); MONOCYTES % 10.2 % (4.4-11.3); NEUTROPHILS # (AUTO) 2.2 (2.1-6.9); PLATELET COUNT 222 x10e3/uL (140-360); RED BLOOD COUNT 3.91 x10e6/uL (3.6-5.1); RED CELL DISTRIBUTION WIDTH 12.9 % (11.7-14.4)
[2021-02-27] MEDS: PIPERACILLIN/TAZOBAC 3.375 GM in SODIUM CHLORIDE 0.9% 50ML 50 ML IV SCH ×3 (06:15→22:15)
[2021-02-27 06:31] LABS: THYROID STIMULATING HORMONE 1.929 uIU/mL (0.350-4.940)
[2021-02-27 06:39] LABS: ALANINE AMINOTRANSFERASE 17 IU/L (0-55); ALBUMIN 3.1 g/dL (3.5-5.0); ALBUMIN/GLOBULIN RATIO 1.1 (0.8-2.0); ALKALINE PHOSPHATASE 42 IU/L (40-150); ANION GAP 12.5 mmol/L (8-16); BLOOD UREA NITROGEN 5 mg/dL (7-26); BUN/CREATININE RATIO 7 (6-25); CALCIUM 7.8 mg/dL (8.4-10.2); CARBON DIOXIDE 19 mmol/L (22-29); CHLORIDE 111 mmol/L (98-107); CHOL/HDL RATIO 3.1 (3.0-3.6); CHOLESTEROL 68 MD/DL (0-199); CREATININE, SERUM 0.73 mg/dL (0.57-1.11); EST GLOMERULAR FILTRATION RATE > 60 ML/MIN (60-); GLUCOSE 256 mg/dL (74-118); HDL CHOLESTEROL 22 MG/DL (40-60); LDL CHOLESTEROL 29 MG/DL (60-130); POTASSIUM 3.5 mmol/L (3.5-5.1); SODIUM 139 mmol/L (136-145); TRIGLYCERIDES 85 MG/DL (0-149)
[2021-02-27] MEDS: INSULIN LISPRO 100 UNIT/1 ML 3ML VIAL SQ SCH ×7 (07:31→20:54)
[2021-02-27] MEDS ORDERED: FLUCONAZOLE 100 MG TAB PO ONE (13:00)
[2021-02-27] MEDS: ENOXAPARIN SOD INJ 40 MG/0.4 ML SYR SC SCH (17:22)
[2021-02-27] MEDS ORDERED: INSULIN GLARGINE 100 UNITS/ML VIAL SQ SCH (21:00)
[2021-02-27] MEDS ORDERED: PIPERACILLIN/TAZOBAC 3.375 GM VIAL ONE (22:19)
[2021-02-27] MEDS ORDERED: SODIUM CHLORIDE 0.9% 50ML 50 ML ONE (22:21)
[2021-02-28 03:00] VITALS: BP 122/82
[2021-02-28 05:12] LABS: BASOPHILS % 0.2 % (0.0-1.0); EOSINOPHILS # (AUTO) 0.1 (0.0-0.4); EOSINOPHILS % 2.9 % (0.0-6.0); HEMATOCRIT 32.8 % (34.2-44.1); HEMOGLOBIN 11.1 g/dL (12.0-16.0); LYMPHOCYTES # (AUTO) 2.1 (1.0-3.2); LYMPHOCYTES % 46.8 % (18.0-39.1); MEAN CORPUSCULAR HEMOGLOBIN 29.8 pg (28-32); MEAN CORPUSCULAR HGB CONC 33.8 g/dL (31-35); MEAN CORPUSCULAR VOLUME 87.9 fL (81-99); MONOCYTES # (AUTO) 0.3 (0.2-0.8); MONOCYTES % 6.4 % (4.4-11.3); PLATELET COUNT 230 x10e3/uL (140-360); RED BLOOD COUNT 3.73 x10e6/uL (3.6-5.1); RED CELL DISTRIBUTION WIDTH 12.9 % (11.7-14.4)
[2021-02-28 05:42] LABS: ANION GAP 13.7 mmol/L (8-16); BLOOD UREA NITROGEN 5 mg/dL (7-26); BUN/CREATININE RATIO 7 (6-25); CALCIUM 8.3 mg/dL (8.4-10.2); CARBON DIOXIDE 21 mmol/L (22-29); CHLORIDE 111 mmol/L (98-107); CREATININE, SERUM 0.67 mg/dL (0.57-1.11); EST GLOMERULAR FILTRATION RATE > 60 ML/MIN (60-); GLUCOSE 159 mg/dL (74-118); POTASSIUM 3.7 mmol/L (3.5-5.1); SODIUM 142 mmol/L (136-145)
[2021-02-28] MEDS: PIPERACILLIN/TAZOBAC 3.375 GM in SODIUM CHLORIDE 0.9% 50ML 50 ML IV SCH (06:08)
[2021-02-28 07:00] VITALS: BP 130/80
[2021-02-28] MEDS: INSULIN LISPRO 100 UNIT/1 ML 3ML VIAL SQ SCH ×4 (07:30→11:48)
[2021-02-28] MEDS: ACETAMINOPHEN 325 MG TAB PO PRN (08:23)
[2021-02-28 09:13] VITALS: BP 130/80
[2021-02-28 09:31] LABS: EOSINOPHILS % (MANUAL) 9 % (0-7); LYMPHOCYTES % (MANUAL) 40 % (19-48); MONOCYTES % (MANUAL) 3 % (3.4-9.0); NEUTROPHILS % (MANUAL) 43 % (40-74); PLATELET ESTIMATE ADEQUATE; PLATELET MORPHOLOGY COMMENT NORMAL; RBC MORPHOLOGY COMMENT NORMAL
[2021-02-28] MEDS ORDERED: FLUCONAZOLE 100 MG TAB PO NR (13:00)
[2021-02-28] MEDS ORDERED: INSULIN GLARGINE 100 UNITS/ML VIAL SQ SCH (21:00)
== END 2021-02-28 14:21 | disposition home or self-care (01) | DRG 871 ==
LOC: ER 23:49 → ERHOLD 02-25 03:13 → IMCU 02-25 03:59
PROVIDERS: ADMIT Internal Medicine; ATTEND Internal Medicine
DX: A41.9 Sepsis, unspecified organism (principal); E11.10 Type 2 diabetes mellitus with ketoacidosis without coma; E66.01 Morbid (severe) obesity due to excess calories; Z68.37 Body mass index [BMI] 37.0-37.9, adult; E86.0 Dehydration; Z91.19 Patient's noncompliance with other medical treatment and regimen; Z59.8 Other problems related to housing and economic circumstances; Z20.822 Contact with and (suspected) exposure to COVID-19; J06.9 Acute upper respiratory infection, unspecified
CPT/HCPCS: 36415; 71045; 74177; 76705; 80048; 80053; 80061; 81001; 81025; 82150; 82948; 83036; 83605; 83690; 83735; 84443; 85025; 87040; 87086; 96366; 99284; J0610; J0692; J1650; J1815; J1817; J2405; J2543; J3475; J3480; J7030; J7040; J7050; Q9967; U0002

== ENCOUNTER 2022-04-16 12:18 | Inpatient (IN) | payer SELFPAY ==
[~2022-04-16] VITALS: Ht 149.9 cm; Wt 95.3 kg
[2022-04-16] MEDS ORDERED: INSULIN REGULAR, HUMAN 100 UNIT/1 ML IV ONE ×2 (12:45)
[2022-04-16] MEDS ORDERED: SODIUM CHLORIDE 0.9% 1000ML 1,000 ML IV ONE ×3 (12:45→15:45)
[2022-04-16] MEDS ORDERED: ONDANSETRON HCL INJ 2MG/ML 2ML 2 MG/ML VIAL IV PRN ×2 (12:45→17:30)
[2022-04-16 12:47] LABS: BASOPHILS % 0.4 % (0.0-1.0); EOSINOPHILS % 0.5 % (0.0-6.0); HEMATOCRIT 45.5 % (34.2-44.1); HEMOGLOBIN 15.7 g/dL (12.0-16.0); LYMPHOCYTES # (AUTO) 0.6 (1.0-3.2); MEAN CORPUSCULAR HEMOGLOBIN 29.1 pg (28-32); MEAN CORPUSCULAR HGB CONC 34.5 g/dL (31-35); MEAN CORPUSCULAR VOLUME 84.3 fL (81-99); MONOCYTES # (AUTO) 0.3 (0.2-0.8); MONOCYTES % 3.4 % (4.4-11.3); NEUTROPHILS # (AUTO) 7.5 (2.1-6.9); NEUTROPHILS % 88.2 % (38.7-80.0); PLATELET COUNT 321 x10e3/uL (140-360); RED CELL DISTRIBUTION WIDTH 12.7 % (11.7-14.4)
[2022-04-16 13:09] LABS: ANION GAP 20.4 mmol/L (8-16); CALCIUM 8.8 mg/dL (8.4-10.2); CREATININE, SERUM 0.93 mg/dL (0.57-1.11); POTASSIUM 4.4 mmol/L (3.5-5.1)
[2022-04-16 13:23] LABS: CLARITY,URINE SL CLOUDY (CLEAR); COLOR,URINE YELLOW (YELLOW); LEUKOCYTE ESTERASE ,URINE TRACE (NEGATIVE); NITRITE,URINE NEGATIVE (NEGATIVE)
[2022-04-16 13:24] LABS: BACTERIA,URINE FEW /HPF; EPITHELIAL CELLS,URINE FEW /LPF; KETONES,URINE 2+ (NEGATIVE); PROTEIN,URINE DIPSTICK NEGATIVE (NEGATIVE); RBC,URINE 0-5 /HPF (0-5); URINE UROBILINOGEN 0.2 mg/dL (0.2 - 1)
[2022-04-16 13:26] LABS: YEAST,URINE FEW
[2022-04-16] MEDS ORDERED: INSULIN REGULAR, HUMAN 100 UNIT/1 ML SQ ONE (14:45)
[2022-04-16] MEDS ORDERED: ACETAMINOPHEN 325 MG TAB PO ONE (15:45)
[2022-04-16 16:18] LABS: ANION GAP 17.6 mmol/L (8-16); CALCIUM 7.9 mg/dL (8.4-10.2); CREATININE, SERUM 0.79 mg/dL (0.57-1.11); POTASSIUM 3.6 mmol/L (3.5-5.1)
[2022-04-16] MEDS ORDERED: IBUPROFEN 600 MG TAB PO ONE (16:30)
[2022-04-16 16:31] LABS: AMPHETAMINES SCREEN,URINE NEGATIVE (NEGATIVE); BENZODIAZEPINES SCREEN,URINE NEGATIVE (NEGATIVE); PHENCYCLIDINE SCREEN,URINE NEGATIVE (NEGATIVE)
[2022-04-16 17:10] LABS: FREE T4 (FREE THYROXINE) 0.85 ng/dL (0.8-1.8); THYROID STIMULATING HORMONE 0.47 uIU/mL (0.350-4.940)
[2022-04-16 17:30] VITALS: BP 91/52
[2022-04-16 18:03] VITALS: BP 91/52
[2022-04-16] MEDS ORDERED: DEXTROSE 50% SYRINGE 50 ML IV PRN (18:15)
[2022-04-16] MEDS: SODIUM CHLORIDE 0.9% 1000ML 1,000 ML IV SCH (18:23)
[2022-04-16] MEDS ORDERED: INSULIN REGULAR, HUMAN 100 UNIT/1 ML ONE (18:40)
[2022-04-16] MEDS ORDERED: SODIUM CHLORIDE 0.9% 100 ML ONE (18:41)
[2022-04-16] MEDS: INSULIN REGULAR, HUMAN 3ML VL 100 UNIT in SODIUM CHLORIDE 0.45% 100 ML 100 ML IV SCH ×2 (18:55)
[2022-04-16 20:00] VITALS: BP 116/75
[2022-04-16 20:16] VITALS: BP 116/75
[2022-04-16 20:22] VITALS: BP 116/75
[2022-04-16 23:00] VITALS: BP 124/85
[2022-04-17] VITALS (23 sets, daily range): BP systolic 90–131; BP diastolic 56–106
[2022-04-17] MEDS: SODIUM CHLORIDE 0.9% 1000ML 1,000 ML IV SCH ×2 (03:19→09:30)
[2022-04-17 05:08] LABS: BASOPHILS % 0.3 % (0.0-1.0); HEMATOCRIT 36.4 % (34.2-44.1); HEMOGLOBIN 12.4 g/dL (12.0-16.0); LYMPHOCYTES % 25.4 % (18.0-39.1); MEAN CORPUSCULAR HEMOGLOBIN 29.1 pg (28-32); MEAN CORPUSCULAR HGB CONC 34.1 g/dL (31-35); MEAN CORPUSCULAR VOLUME 85.4 fL (81-99); MONOCYTES # (AUTO) 0.4 (0.2-0.8); MONOCYTES % 10.9 % (4.4-11.3); NEUTROPHILS # (AUTO) 2.4 (2.1-6.9); NEUTROPHILS % 61.1 % (38.7-80.0); PLATELET COUNT 235 x10e3/uL (140-360); RED BLOOD COUNT 4.26 x10e6/uL (3.6-5.1); RED CELL DISTRIBUTION WIDTH 12.8 % (11.7-14.4)
[2022-04-17 05:25] LABS: ANION GAP 10.2 mmol/L (8-16); CALCIUM 7.5 mg/dL (8.4-10.2); CREATININE, SERUM 0.66 mg/dL (0.57-1.11); POTASSIUM 3.2 mmol/L (3.5-5.1)
[2022-04-17] MEDS: INSULIN REGULAR, HUMAN 3ML VL 100 UNIT in SODIUM CHLORIDE 0.45% 100 ML 100 ML IV SCH ×2 (08:00)
[2022-04-17] MEDS ORDERED: ACETAMINOPHEN 325 MG TAB PO PRN (08:30)
[2022-04-17] MEDS ORDERED: NON-FORMULARY MEDICATION (Ondansetron Hcl* (Zofran*) 4 MG) SL PRN (08:30)
[2022-04-17] MEDS ORDERED: POTASSIUM CHLORIDE 20 MEQ TAB CR PO ONE (08:45)
[2022-04-17] MEDS ORDERED: POTASSIUM CHLORIDE 20 MEQ TAB CR PO SCH (09:00)
[2022-04-17] MEDS ORDERED: INSULIN LISPRO 100 UNIT/1 ML 3ML VIAL SQ ONE (13:20)
[2022-04-17 13:30] LABS: FREE T4 (FREE THYROXINE) 0.79 ng/dL (0.8-1.8); THYROID STIMULATING HORMONE 0.414 uIU/mL (0.350-4.940)
[2022-04-17] MEDS: DEXTROSE 5%/0.45% SOD CHL 1,000 ML IV SCH ×2 (13:55→22:57)
[2022-04-17 15:28] LABS: ANION GAP 11.5 mmol/L (8-16); CREATININE, SERUM 0.68 mg/dL (0.57-1.11); POTASSIUM 3.5 mmol/L (3.5-5.1)
[2022-04-17] MEDS ORDERED: DEXTROSE 50% SYRINGE 50 ML IV PRN (17:30)
[2022-04-17] MEDS: INSULIN LISPRO 100 UNIT/1 ML 3ML VIAL SQ SCH ×2 (17:39→21:24)
[2022-04-17] MEDS ORDERED: INSULIN GLARGINE 100 UNITS/ML VIAL SQ SCH ×2 (21:00)
[2022-04-18] VITALS (10 sets, daily range): BP systolic 95–123; BP diastolic 66–81
[2022-04-18] MEDS: INSULIN LISPRO 100 UNIT/1 ML 3ML VIAL SQ SCH ×3 (08:13→12:00)
[2022-04-18] MEDS: DEXTROSE 5%/0.45% SOD CHL 1,000 ML IV SCH (08:18)
[2022-04-18] MEDS ORDERED: POTASSIUM CHLORIDE 20 MEQ TAB CR PO SCH (09:00)
[2022-04-18] MEDS ORDERED: HUMULIN N100 UNITS/ SC (14:27)
[2022-04-18] MEDS ORDERED: HUMULIN-R100 UNITS/ SQ (14:29)
[2022-04-18] MEDS ORDERED: NPH, HUMAN INSULIN ISOPHANE 100 UNIT/1 ML 3ML VIAL SQ SCH (14:30)
[2022-04-18] MEDS ORDERED: INSULIN LISPRO 100 UNIT/1 ML 3ML VIAL SQ SCH (16:30)
[2022-04-18] MEDS ORDERED: ATORVASTATIN 20 MG TAB PO SCH (21:00)
[2022-04-18] MEDS ORDERED: INSULIN GLARGINE 100 UNITS/ML VIAL SQ SCH (21:00)
== END 2022-04-18 15:51 | disposition home or self-care (01) | DRG 638 ==
LOC: ER 12:38 → ERHOLD 17:19 → ICU 19:25
PROVIDERS: ADMIT Internal Medicine; ATTEND Internal Medicine
DX: E10.10 Type 1 diabetes mellitus with ketoacidosis without coma (principal); Z68.41 Body mass index [BMI] 40.0-44.9, adult; E66.9 Obesity, unspecified; T38.3X6A Underdosing of insulin and oral hypoglycemic [antidiabetic] drugs, initial encounter; F32.A Depression, unspecified; Z83.3 Family history of diabetes mellitus; Z82.49 Family history of ischemic heart disease and other diseases of the circulatory system; Z79.4 Long term (current) use of insulin; Z20.822 Contact with and (suspected) exposure to COVID-19
CPT/HCPCS: 36415; 71045; 80048; 80053; 80307; 81001; 82550; 82948; 83036; 83605; 83690; 83735; 84439; 84443; 84702; 85025; 87040; 87086; 93005; 96360; 99284; J1815; J1817; J2405; J2543; J7030; J7050; U0002

== ENCOUNTER 2023-04-14 22:46 | Emergency (ER) | payer SELFPAY ==
[~2023-04-14] VITALS: Ht 149.9 cm; Wt 95.3 kg
[~2023-04-14 22:46] MED LIST changes: +HUMULIN N100 UNITS/ SC; +HUMULIN-R100 UNITS/ SQ
[2023-04-14] MEDS ORDERED: ACETAMINOPHEN 325 MG TAB PO ONE ×2 (23:45)
[2023-04-15] MEDS ORDERED: AMOX TR-K CLV1 EAC2 PO (00:10)
[2023-04-15 01:38] VITALS: BP 132/79; PULSE 89; RESP 17; TEMP 99.4; O2SAT 98
== END 2023-04-14 23:59 | disposition home or self-care (01) ==
LOC: ER 22:50
DX: R50.9 Fever, unspecified (principal); J02.0 Streptococcal pharyngitis; E11.9 Type 2 diabetes mellitus without complications; F32.A Depression, unspecified
CPT/HCPCS: 83518; 99283

== ENCOUNTER 2024-05-22 21:59 | Emergency (ER) | payer SELFPAY ==
[~2024-05-22] VITALS: Ht 180.3 cm; Wt 81.6 kg
[~2024-05-22 21:59] MED LIST changes: +AMOX TR-K CLV1 EAC2 PO; +MUCINEX DM ER1 EAC1 PO; +SINGULAIR10 MG PO; +ZYRTEC10 MG PO
[2024-05-22 22:10] VITALS: PULSE 90; RESP 18; TEMP 98.8; O2SAT 99
[2024-05-22] MEDS ORDERED: AMOX TR-K CLV1 EAC2 PO (22:25)
== END 2024-05-22 22:33 | disposition home or self-care (01) ==
LOC: ER 22:05
DX: H10.9 Unspecified conjunctivitis (principal); J06.9 Acute upper respiratory infection, unspecified; E11.9 Type 2 diabetes mellitus without complications; Z79.4 Long term (current) use of insulin
CPT/HCPCS: 99282

== ENCOUNTER 2025-08-29 17:36 | Emergency (ER) | payer SELFPAY ==
[~2025-08-29] VITALS: Ht 149.9 cm; Wt 81.6 kg
[2025-08-29 19:02] VITALS: TEMP 98.7
[2025-08-29 19:30] LABS: BASOPHILS % 0.4 % (0.0-1.0); EOSINOPHILS % 1.1 % (0.0-6.0); LYMPHOCYTES % 39.8 % (18.0-39.1); MONOCYTES % 5.9 % (4.4-11.3); NEUTROPHILS % 51.4 % (38.7-80.0); RED CELL DISTRIBUTION WIDTH 12.3 % (11.7-14.4)
[2025-08-29] MEDS: SODIUM CHLORIDE 0.9% 1000ML 1,000 ML IV ONE ×2 (19:33→21:36)
[2025-08-29] MEDS: INSULIN REGULAR, HUMAN 100 UNIT/1 ML SQ ONE ×2 (19:34→21:40)
[2025-08-29 19:54] LABS: EST GLOMERULAR FILTRATION RATE 124.0 ML/MIN (>=60)
[2025-08-29 21:42] VITALS: PULSE 93; RESP 14; O2SAT 100
[2025-08-29 23:18] LABS: EST GLOMERULAR FILTRATION RATE 131.0 ML/MIN (>=60)
[2025-08-29] MEDS ORDERED: NOVOLIN R100 UNIT/1 SQ (23:58)
[2025-08-30 00:33] VITALS: BP 125/87; PULSE 90; RESP 18; TEMP 98.3
== END 2025-08-30 00:30 | disposition home or self-care (01) ==
LOC: ER 19:14
DX: R06.02 Shortness of breath (principal); R07.89 Other chest pain; E11.65 Type 2 diabetes mellitus with hyperglycemia; F32.A Depression, unspecified
CPT/HCPCS: 36415; 71045; 80048; 80053; 82948; 84484; 85025; 93005; 99284; J7030